=== PATIENT | male | born 1955 | race Caucasian/White ===

== ENCOUNTER → 2017-09-23 10:27 | Outpatient (CLI) | payer MEDICARE, SELFPAY ==
[2017-09-23 12:27] LABS: AST(SGOT) 26 U/L (15-37); Alanine Aminotransfer ALT/SGPT 32 U/L (16-61); Albumin, Serum 3.7 g/dL (3.2-5.0); Alkaline Phosphatase 39 U/L (45-117); Anion Gap 5 (5-15); BUN 15 mg/dL (7-18); BUN/Creat Ratio 13.3 RATIO (10-20); Bilirubin, Direct 0.08 mg/dL (0.00-0.30); Calcium,Total 8.3 mg/dL (8.5-10.1); Chloride 106 mmol/L (98-107); Cholesterol 135 mg/dL (200); Creatinine, Serum 1.13 mg/dL (0.70-1.30); EST Glomerular Filtration Rate 70 mL/min (>60); Est Glom Filt Rate - Afr Amer 85 mL/min (>60); Globulin 3.2 g/dL (2.2-4.2); Glucose 140 mg/dL (74-106); High Density Lipoprotein 36 mg/dL; Protein, Total 6.9 g/dL (6.4-8.2); Sodium Level 138 mmol/L (136-145); Triglycerides 209 mg/dL; Very Low Density Lipoprotein 42 mg/dL (5-40)
[2017-09-23 12:30] LABS: Microalbumin,Random Urine < 5.0 mg/L (NO RANGE EST.)
[2017-09-24 11:22] LABS: Hep C Antibodies <0.1 s/co ratio (0.0-0.9)
== END ==
PROVIDERS: Family Provider Family Medicine; PCP Family Medicine; Visit Provider Family Medicine
DX: E11.9 Type 2 diabetes mellitus without complications (principal); Z11.59 Encounter for screening for other viral diseases
CPT/HCPCS: 36415; 80048; 80061; 80076; 82043; 82570; 86803

== ENCOUNTER → 2018-03-25 07:03 | Outpatient (CLI) | payer MEDICARE, SELFPAY ==
[2018-03-25 09:01] LABS: Microalbumin,Random Urine < 5.0 mg/L (NO RANGE EST.)
[2018-03-25 09:07] LABS: AST(SGOT) 21 U/L (15-37); Alanine Aminotransfer ALT/SGPT 31 U/L (16-61); Albumin, Serum 3.6 g/dL (3.2-5.0); Alkaline Phosphatase 36 U/L (45-117); Anion Gap 8 (5-15); BUN 18 mg/dL (7-18); BUN/Creat Ratio 16.4 RATIO (10-20); Chloride 100 mmol/L (98-107); Cholesterol 129 mg/dL (200); EST Glomerular Filtration Rate 72 mL/min (>60); Est Glom Filt Rate - Afr Amer 87 mL/min (>60); Globulin 3.5 g/dL (2.2-4.2); Glucose 128 mg/dL (74-106); High Density Lipoprotein 38 mg/dL; Potassium 4.1 mmol/L (3.5-5.1); Protein, Total 7.1 g/dL (6.4-8.2); Sodium Level 136 mmol/L (136-145); Triglycerides 219 mg/dL; Very Low Density Lipoprotein 44 mg/dL (5-40)
== END ==
PROVIDERS: Family Provider Family Medicine; PCP Family Medicine; Visit Provider Family Medicine
DX: E11.9 Type 2 diabetes mellitus without complications (principal)
CPT/HCPCS: 36415; 80048; 80061; 80076; 82043; 82570

== ENCOUNTER → 2019-01-17 12:09 | Outpatient (CLI) | payer MEDICARE, SELFPAY ==
--- NOTE | 2019-01-17 12:20 | CT_ITS ---
STUDY: CT ABDOMEN AND PELVIS WITH CONTRAST REASON FOR EXAM: Male, 63 years old. Abdominal pain, nausea and vomiting. RADIATION DOSAGE (If Supplied By Facility): CTDIvol = ( 16.91 ) mGy, DLP = ( 1209.08 ) mGycm TECHNIQUE: Transaxial images were obtained from the dome of the diaphragm to the symphysis pubis with oral contrast. 100ML IV/Oral Isovue 300 was administered. Sagittal and coronal images were reconstructed. Individualized dose optimization techniques were used for this CT. COMPARISON: CT abdomen and pelvis September 05, 2015. Normal small bowel series September 16, 2015 and normal esophagram September 30, 2016 not available for comparison at the time of this dictation. FINDINGS: The visualized lung bases are unremarkable. The heart size is upper normal. There are atherosclerotic calcifications of the coronary arteries. There is hepatomegaly, the right lobe measuring 20.9 cm in height. It is difficult to accurately assess liver density following IV contrast menstruation, but there is strong suggestion of diffuse fatty infiltration. The patent portal vein diameter is 14.5 mm.. There are 2-4 very small calcified stones near the gallbladder fundus (series 2 image 54, series 6 on image 57). No mural thickening of the gallbladder nor pericholecystic fluid to suggest cholecystitis. The biliary tree is unremarkable Normal spleen. Normal pancreas. Normal bilateral adrenal glands. Normal right kidney. Normal left kidney. No hydronephrosis. Normal visualized stomach. Normal small intestine. Normal colon. The appendix is visualized and appears normal. There is mild atherosclerotic calcification of the abdominal aorta and proximal iliac arteries, without a demonstrated aneurysm. Normal inferior vena cava. Normal retroperitoneum. Normal urinary bladder. Normal visualized prostate gland. There is a fascial defect in the lateral margin of the lower left rectus abdominis muscle, allowing for a stable lentiform shaped 7.4 x 3.05 x 8.4 cm fat-containing hernia near the top of the left inguinal canal. There is a stable very small umbilical hernia containing fat. There are diffuse degenerative changes of the visualized spine. There is mild anterior wedging of the T11 and T12 vertebrae. Well-corticated focal invaginations of a few lower thoracic vertebral endplates are consistent with benign Schmorl's nodes. CT/Abdomen/Pelvis WITH Contrast IMPRESSION: 1. The bowel is unremarkable without signs of obstruction. The appendix is normal. 2. Hepatomegaly with probable steatosis. 3. A few very small gallstones are present. No sign of acute cholecystitis or bile duct obstruction. 4. Atherosclerotic vascular calcifications, as noted above. 5. Fascial defect at the lateral margin of the lower left rectus abdominis muscle with a stable lentiform shaped 8 cm fat-containing hernia near the top of the left inguinal canal. Electronically Signed: Saroj South MD at 15:26 EDT , Service support ,
[2019-01-17 14:19] LABS: Absolute Lymphocyte Count 1.39 X10^3/ul (0.83-4.51); Absolute Neutrophil Count 9.4 X10^3/uL (2.0-7.7); Basophil# 0.04 X10^3/uL; Basophil% 0.3 % (0-1); Eosinophil# 0.19 X10^3/uL; Eosinophils% 1.6 % (0-5); Hematocrit 41.4 % (40-54); Hemoglobin 14.7 g/dl (13.0-16.5); Lymphocyte # 1.39 X10^3/ul (4.0); Lymphocyte % 11.7 % (19-41); Mean Corp Hgb Conc 35.5 g/gl (32-36); Mean Corpuscular Hgb 31.1 pg (27.0-32.0); Mean Corpuscular Volume 87.5 fL (80-94); Mean Platelet Vol. 9.7 fl (6.2-12.0); Monocyte# 0.78 X10^3/uL; Monocyte% 6.6 % (0-10); Neutrophil # 9.43 X10^3/uL (2.7-7.7); Neutrophil % 79.6 % (47-70); Platelet Count 246 K/mm3 (150-450); RBC Distribution Width CV 12.4 % (11.6-14.6); RBC Distribution Width SD 39.2 fl (35.1-43.9); Red Blood Count 4.73 M/mm3 (4.6-6.2); White Blood Count 11.9 K/mm3 (4.4-11.0)
[2019-01-17 14:22] LABS: POSITIVE COUNT NO; POSITIVE DIFFERENTIAL NO; POSITIVE MORPHOLOGY NO
[2019-01-17 14:28] LABS: Amylase 44 U/L (25-115); Anion Gap 4 (5-15); BUN 12 mg/dL (7-18); BUN/Creat Ratio 11.7 RATIO (10-20); Chloride 97 mmol/L (98-107); Creatinine, Serum 1.03 mg/dL (0.70-1.30); EST Glomerular Filtration Rate 78 mL/min (>60); Est Glom Filt Rate - Afr Amer 94 mL/min (>60); Glucose 125 mg/dL (74-106); Lipase 169 U/L (73-393); Sodium Level 130 mmol/L (136-145)
== END ==
PROVIDERS: Family Provider Family Medicine; PCP Family Medicine; Referring Provider Family Medicine; Visit Provider Family Medicine
DX: R10.9 Unspecified abdominal pain (principal)
CPT/HCPCS: 36415; 74177; 80048; 82150; 83690; 85025; Q9967

== ENCOUNTER → 2019-02-27 14:01 | Outpatient (CLI) | payer MEDICARE, SELFPAY ==
[2019-02-27 15:36] LABS: ALB/GLOB Ratio 1.3 RATIO (0.9-2.4); AST(SGOT) 24 U/L (15-37); Alanine Aminotransfer ALT/SGPT 34 U/L (16-61); Albumin, Serum 4.1 g/dL (3.2-5.0); Alkaline Phosphatase 30 U/L (45-117); Anion Gap 6 (5-15); BUN 18 mg/dL (7-18); BUN/Creat Ratio 16.7 RATIO (10-20); Chloride 99 mmol/L (98-107); Creatinine, Serum 1.08 mg/dL (0.70-1.30); EST Glomerular Filtration Rate 73 mL/min (>60); Est Glom Filt Rate - Afr Amer 89 mL/min (>60); Globulin 3.1 g/dL (2.2-4.2); Glucose 102 mg/dL (74-106); Potassium 3.9 mmol/L (3.5-5.1); Protein, Total 7.2 g/dL (6.4-8.2); Sodium Level 132 mmol/L (136-145)
== END ==
PROVIDERS: Family Provider Family Medicine; PCP Family Medicine; Visit Provider Family Medicine
DX: B35.1 Tinea unguium (principal)
CPT/HCPCS: 36415; 80053

== ENCOUNTER → 2019-06-02 07:12 | Outpatient (CLI) | payer MEDICARE, SELFPAY ==
[2019-06-02 08:31] LABS: Anion Gap 4 (5-15); BUN 13 mg/dL (7-18); BUN/Creat Ratio 11.1 RATIO (10-20); Calcium,Total 8.9 mg/dL (8.5-10.1); Chloride 102 mmol/L (98-107); Cholesterol 151 mg/dL (200); Creatinine, Serum 1.17 mg/dL (0.70-1.30); EST Glomerular Filtration Rate 67 mL/min (>60); Est Glom Filt Rate - Afr Amer 81 mL/min (>60); Glucose 146 mg/dL (74-106); High Density Lipoprotein 40 mg/dL; Potassium 4.1 mmol/L (3.5-5.1); Sodium Level 135 mmol/L (136-145); Triglycerides 212 mg/dL; Very Low Density Lipoprotein 42 mg/dL (5-40)
== END ==
PROVIDERS: Family Provider Family Medicine; PCP Family Medicine; Referring Provider Family Medicine; Visit Provider Family Medicine
DX: I10 Essential (primary) hypertension (principal)
CPT/HCPCS: 36415; 80048; 80061

== ENCOUNTER → 2020-03-22 06:53 | Outpatient (CLI) | payer MEDICARE, SELFPAY ==
[2020-03-22 07:48] LABS: Anion Gap 7 (5-15); BUN 14 mg/dL (7-18); BUN/Creat Ratio 15.1 RATIO (10-20); Calcium,Total 8.9 mg/dL (8.5-10.1); Chloride 101 mmol/L (98-107); Cholesterol 141 mg/dL (200); Creatinine, Serum 0.92 mg/dL (0.70-1.30); EST Glomerular Filtration Rate 87 mL/min (>60); Est Glom Filt Rate - Afr Amer 106 mL/min (>60); Glucose 95 mg/dL (74-106); High Density Lipoprotein 51 mg/dL; Potassium 3.8 mmol/L (3.5-5.1); Sodium Level 136 mmol/L (136-145); Triglycerides 91 mg/dL; Very Low Density Lipoprotein 18 mg/dL (5-40)
== END ==
PROVIDERS: PCP Family Medicine; Referring Provider Family Medicine; Visit Provider Family Medicine
DX: E11.9 Type 2 diabetes mellitus without complications (principal)
CPT/HCPCS: 36415; 80048; 80061

== ENCOUNTER → 2020-08-05 09:31 | Outpatient (CLI) | payer MEDICARE, SELFPAY ==
--- NOTE | 2020-08-05 11:38 | STRESSREP ---
Stress Test Report Exercise stress test. 64-year-old male with a history of chest pain. Stress protocol: Resting EKG demonstrates normal sinus rhythm with a rate of 65 bpm normal intervals are noted resting blood pressure is 150/90 mmHg. The patient exercised according to regular Kevyn protocol for a total duration of 3 minutes. The maximum heart rate attained was 127 bpm which was 81% of max impacted heart rate the maximum workload was 4.6 metabolic equivalents. The test was terminated due to leg discomfort, and dyspnea and fatigue. The peak blood pressure is 180/84 mmHg. At rest there were no ST or T wave changes noted to suggest ischemia at peak exercise upsloping ST changes only were noted we did not meet the criteria for ischemia. No clinical angina was noted. Conclusion: Exercise stress test with no EKG criteria for ischemia at a low workload. The low workload may affect sensitivity for detection of ischemia.
== END ==
PROVIDERS: PCP Family Medicine; Referring Provider Internal Medicine Pulmonary Disease; Visit Provider Internal Medicine Pulmonary Disease
DX: R06.00 Dyspnea, unspecified (principal)
CPT/HCPCS: 93017

== ENCOUNTER → 2020-09-09 07:11 | Outpatient (CLI) | payer MEDICARE, SELFPAY ==
[2020-09-09 10:51] LABS: Anion Gap 7 (5-15); BUN 17 mg/dL (7-18); Calcium,Total 8.9 mg/dL (8.5-10.1); Chloride 98 mmol/L (98-107); Cholesterol 125 mg/dL (200); Creatinine, Serum 1.21 mg/dL (0.70-1.30); EST Glomerular Filtration Rate 64 mL/min (>60); Est Glom Filt Rate - Afr Amer 78 mL/min (>60); Glucose 143 mg/dL (74-106); High Density Lipoprotein 44 mg/dL; PSA,Total - Annual Screen 0.11 ng/mL (0.00-4.00); Potassium 3.9 mmol/L (3.5-5.1); Sodium Level 133 mmol/L (136-145); Triglycerides 134 mg/dL; Very Low Density Lipoprotein 27 mg/dL (5-40)
== END ==
PROVIDERS: PCP Family Medicine; Referring Provider Family Medicine; Visit Provider Family Medicine
DX: E11.9 Type 2 diabetes mellitus without complications (principal); Z12.5 Encounter for screening for malignant neoplasm of prostate
CPT/HCPCS: 36415; 80048; 80061; 84153; G0103

== ENCOUNTER 2020-09-24 16:06 | Emergency (ER) | payer MEDICARE, SELFPAY ==
[2020-09-24 16:07] VITALS: BP 173/93; BP 176/93; PULSE 54; RESP 18; TEMP 36.7; O2SAT 98; BMI 42.8
--- NOTE | 2020-09-24 16:41 | ED.DCSUM_ITS ---
History of Present Illness Chief Complaint: Nausea/Vomiting Informant: Patient Narrative: 64-year-old male presents with nausea vomiting and abdominal pain. Patient states he woke around 7:00 this morning felt okay. He drank water and coke and began having abdominal pain and then vomiting around 0900 hrs. He states he is feeling a little bit better now but he still belching feeling nauseous and having abdominal pain. He reports having had pancreatitis due to a blood pressure medication in the past. He states he has been told he has had gallstones but has not had cholecystectomy. He notes no radiation of the pain to the back, shoulder or flank. His only surgery he states is carpal tunnel. He did start a new antidepressant medication 2 weeks ago but cannot recall the name of it. No fevers. Normal bowel movement this morning. Past Medical History - Allergies and Home Meds Allergies/Adverse Reactions: Allergies lithium Allergy (Verified 09/30/14 21:14) Other levofloxacin [From Levaquin] Adverse Reaction (Verified 09/30/14 21:25) Pain in joints Primary Care Physician: José Stein MD [Primary Care Provider] - Past Medical History: - - Pancreatitis hypertension depression Surgical History: - - Carpal tunnel Smoking Status: Former smoker Alcohol: None Drugs: None Review of Systems General: Denies: Chills, Fever, Sweats Eyes: Denies: Visual changes - bilaterally, Diplopia ENT: Denies: Rhinorrhea, Sore throat Cardiovascular: Denies: Chest pain, Palpitations Respiratory: Denies: Dyspnea, Cough, Dyspnea on exertion Gastrointestinal: Reports: Abdominal pain, Nausea, Vomiting. Denies: Diarrhea, Melena, Hematochezia Genitourinary: Denies: Dysuria, Hematuria, Frequency Musculoskeletal: Denies: Back pain, Extremity Pain Skin: Denies: Rash, Wounds Neurological: Denies: Headache, Weakness, Numbness Physical Exam Vital Signs/Narrative: Vital Signs Temp Pulse Resp BP Pulse Ox 09/24/20 16:07 98.1 F 54 L 18 173/93 H 98 Inital Vital Signs reviewed: Yes General: Well nourished, Well developed, Obese, No Acute Distress Head: Normocephalic, Atraumatic Eyes: Perrl, EOMI ENT: Moist mucous membranes, No rhinorrhea Neck: Supple, Nontender Cardiovascular: Regular rate, Regular rhythm, No murmurs Respiratory: No distress, CTA bilaterally, Chest nontender Abdomen: Soft, Nondistended, Tender, Hypoactive bowel sounds. Negative for: Guarding Back: Nontender, Normal Inspection Extremities: Nontender, No edema Skin: Normal color, No rash Neurological: Alert, Oriented x3, Cranial nerves II-XII grossly intact, Normal Strength, Normal Sensation Psychological: Normal affect, Normal Mood Diagnostic/Tx/Re-eval Laboratory Last Values WBC 10.6 K/mm3 (4.4-11.0) 09/24/20 17:00 RBC 4.60 M/mm3 (4.6-6.2) 09/24/20 17:00 Hgb 14.5 g/dL (13.0-16.5) 09/24/20 17:00 Hct 40.7 % (40-54) 09/24/20 17:00 MCV 88.5 fL (80-94) 09/24/20 17:00 MCH 31.5 pg (27.0-32.0) 09/24/20 17:00 MCHC 35.6 g/dL (32-36) 09/24/20 17:00 RDW Std Deviation 38.9 fl (35.1-43.9) 09/24/20 17:00 RDW Coeff of Osmel 12.2 % (11.6-14.6) 09/24/20 17:00 Plt Count 256 K/mm3 (150-450) 09/24/20 17:00 MPV 9.5 fl (6.2-12.0) 09/24/20 17:00 Immature Gran % (Auto) 0.300 % (0.0-0.9) 09/24/20 17:00 Neut % (Auto) 80.3 % (47-70) H 09/24/20 17:00 Lymph % (Auto) 10.7 % (19-41) L 09/24/20 17:00 Waldo % (Auto) 5.6 % (0-10) 09/24/20 17:00 Eos % (Auto) 2.5 % (0-5) 09/24/20 17:00 Baso % (Auto) 0.6 % (0-1) 09/24/20 17:00 Absolute Neuts (auto) 8.5 X10^3/uL (2.0-7.7) H 09/24/20 17:00 Absolute Lymphs (auto) 1.13 X10^3/uL (0.83-4.51) 09/24/20 17:00 Nucleated RBC % 0 % (0-5) 09/24/20 17:00 Sodium 133 mmol/L (136-145) L 09/24/20 17:00 Potassium 4.1 mmol/L (3.5-5.1) 09/24/20 17:00 Chloride 97 mmol/L (98-107) L 09/24/20 17:00 Carbon Dioxide 25.0 mmol/L (21.0-32.0) 09/24/20 17:00 Anion Gap 11 (5-15) 09/24/20 17:00 BUN 14 mg/dL (7-18) 09/24/20 17:00 Creatinine 1.22 mg/dL (0.70-1.30) 09/24/20 17:00 Estim Creat Clear Calc 59.18 ml/min 09/24/20 17:00 Est GFR (MDRD) Af Amer 77 mL/min (>60) 09/24/20 17:00 Est GFR (MDRD) Non-Af 63 mL/min (>60) 09/24/20 17:00 BUN/Creatinine Ratio 11.5 RATIO (10-20) 09/24/20 17:00 Glucose 108 mg/dL (74-106) H 09/24/20 17:00 Calcium 9.5 mg/dL (8.5-10.1) 09/24/20 17:00 Total Bilirubin 0.60 mg/dL (0.20-1.00) 09/24/20 17:00 AST 23 U/L (15-37) 09/24/20 17:00 ALT 34 U/L (16-61) 09/24/20 17:00 Alkaline Phosphatase 33 U/L (45-117) L 09/24/20 17:00 Total Protein 7.4 g/dL (6.4-8.2) 09/24/20 17:00 Albumin 4.0 g/dL (3.2-5.0) 09/24/20 17:00 Globulin 3.4 g/dL (2.2-4.2) 09/24/20 17:00 Albumin/Globulin Ratio 1.2 RATIO (0.9-2.4) 09/24/20 17:00 Amylase 34 U/L (25-115) 09/24/20 17:00 Lipase 122 U/L (73-393) 09/24/20 17:00 Urine Color Yellow (Yellow) 09/24/20 16:40 Urine Clarity Clear (Clear) 09/24/20 16:40 Urine pH 7.0 (5.0 - 8.0) 09/24/20 16:40 Ur Specific [place] 1.015 (1.002-1.030) 09/24/20 16:40 Urine Protein Negative mg/dl (Negative) 09/24/20 16:40 Urine Glucose (UA) Normal mg/dl (Normal) 09/24/20 16:40 Urine Ketones Negative mg/dl (Negative) 09/24/20 16:40 Urine Occult Blood Negative /ul (Negative) 09/24/20 16:40 Urine Nitrite Negative (Negative) 09/24/20 16:40 Urine Bilirubin Negative mg/dL (Negative) 09/24/20 16:40 Urine Urobilinogen Normal mg/dl (Normal) 09/24/20 16:40 Ur Leukocyte Esterase Negative /ul (Negative) 09/24/20 16:40 Urine RBC 0 SEEN /hpf (0-5) 09/24/20 16:40 Urine WBC 0 SEEN /hpf (0-5) 09/24/20 16:40 Ur Squamous Epith Cells 0 SEEN /hpf (0-5) 09/24/20 16:40 Urine Bacteria RARE /hpf (None Seen) 09/24/20 16:40 Urine Mucus 0 SEEN /hpf (<or=2+) 09/24/20 16:40 STUDY: ULTRASOUND GALLBLADDER REASON FOR VISIT: Male, 64 years old. Abdominal pain TECHNIQUE: Ultrasound evaluation of the gallbladder was performed with real-time and static avalos-scale imaging. TECHNICAL QUALITY: Adequate. COMPARISON: CT abdomen and pelvis 01/17/2019 report. FINDINGS: Liver measures 19.6 cm and appears echogenic/fatty. Gallbladder: Normal distended gallbladder. The gallbladder wall measures 1 mm. There is a negative sonographic Andrews''s sign. There is no pericholecystic fluid. There are multiple echogenic structures within the gallbladder, consistent with multiple gallstones and sludge. Common Bile Duct (C.B.D.): The common bile duct measures 2 mm. Pancreas appears echogenic and possibly enlarged. Right kidney measures 13.9 cm. No hydronephrosis. IMPRESSION: Limited exam due to bowel gas. Cholelithiasis. Possible pancreatitis. Hepatic steatosis. Electronically Signed: Neil Abad MD at 18:24 EST , Service support , US/Gallbladder CC: Dr. Dani Frausto DO; Dr. José Stein MD Hunting And Fishing Guide: Signed - Medical Decision Making The patient received morphine and Zofran. He also received IV fluids. Repeat examination finds him to be feeling significantly better. His white count is normal but there is a slight shift. Lipase and liver enzymes normal. Gallbladder ultrasound shows cholelithiasis and sludge. No pericholecystic fluid negative sonographic Andrews's normal common bile duct and normal gallbladder wall. Case was discussed with on-call surgeon Dr. Johnson. Our plan is that we would feed him. He ate for large cookies and drank fluids. He states he has had no pain no nausea or vomiting. He would like to go home I think is reasonable at this time. I will refer him to surgery and write for him to have pain and nausea medication but if he is uncomfortable at home he can certainly return. ED Disposition - Plan for ED Patient: Disposition: Home or Assisted Living Diagnosis: Vomiting, Abdominal pain, Cholelithiasis Instructions: ED Gallstones with Biliary Colic Prescriptions: Hydrocodone Bitart/Apap 5-325 [Thor 5MG-325MG] 1 tab PO Q6H PRN PRN 3 Days #10 tab PRN Reason: Pain Prescription Printed Ondansetron [Zofran Odt] 4 mg PO Q8H PRN PRN #10 tab PRN Reason: Nausea Prescription Printed Referrals: Ayaan Johnson MD [STAFF PHYSICIAN] - (Call in the morning to obtain early surgical consultation for your gallbladder disease)
[2020-09-24 16:57] LABS: Mucous, Urine 0 SEEN /hpf (<or=2+); Red Blood Cells-Urine 0 SEEN /hpf (0-5); Squamous Epithelial Cells - UA 0 SEEN /hpf (0-5); White Blood Cells 0 SEEN /hpf (0-5)
[2020-09-24 16:59] LABS: Color, Urine Yellow (Yellow); Glucose, Dipstick Normal (Normal); Ketone-Dipstick Negative (Negative); Leukocyte Esterase-Dipstick Negative /ul (Negative); Nitrite-Dipstick Negative (Negative); Occult Blood-Urine Negative /ul (Negative); Protein-Dipstick Negative (Negative); Specific Gravity, Urine 1.015 (1.002-1.030); Urine Bilirubin Dipstick Negative (Negative); Urine Clarity Clear (Clear); Urine Urobilinogen Normal (Normal)
[2020-09-24] MEDS: 0.9% Normal Saline 1,000 ML 1000 ML IV (16:59)
[2020-09-24] MEDS: Morphine 4 MG/ML Syringe IV (17:04)
[2020-09-24] MEDS: Ondansetron 4 MG/2 ML Vial IV (17:05)
[2020-09-24 17:07] LABS: Bacteria RARE /hpf (None Seen)
[2020-09-24 17:16] LABS: Absolute Lymphocyte Count 1.13 X10^3/uL (0.83-4.51); Absolute Neutrophil Count 8.5 X10^3/uL (2.0-7.7); Basophil# 0.06 X10^3/uL; Basophil% 0.6 % (0-1); Eosinophil# 0.26 X10^3/uL; Eosinophils% 2.5 % (0-5); Hematocrit 40.7 % (40-54); Hemoglobin 14.5 g/dL (13.0-16.5); Lymphocyte # 1.13 X10^3/ul (4.0); Lymphocyte % 10.7 % (19-41); Mean Corp Hgb Conc 35.6 g/dL (32-36); Mean Corpuscular Hgb 31.5 pg (27.0-32.0); Mean Corpuscular Volume 88.5 fL (80-94); Mean Platelet Vol. 9.5 fl (6.2-12.0); Monocyte# 0.59 X10^3/uL; Monocyte% 5.6 % (0-10); NRBC Flagged by Analyzer 0 % (0-5); Neutrophil # 8.48 X10^3/uL (2.7-7.7); Neutrophil % 80.3 % (47-70); Platelet Count 256 K/mm3 (150-450); RBC Distribution Width CV 12.2 % (11.6-14.6); RBC Distribution Width SD 38.9 fl (35.1-43.9); White Blood Count 10.6 K/mm3 (4.4-11.0)
[2020-09-24 17:40] LABS: ALB/GLOB Ratio 1.2 RATIO (0.9-2.4); AST(SGOT) 23 U/L (15-37); Alanine Aminotransfer ALT/SGPT 34 U/L (16-61); Alkaline Phosphatase 33 U/L (45-117); Amylase 34 U/L (25-115); Anion Gap 11 (5-15); BUN 14 mg/dL (7-18); BUN/Creat Ratio 11.5 RATIO (10-20); Calcium,Total 9.5 mg/dL (8.5-10.1); Chloride 97 mmol/L (98-107); Creatinine, Serum 1.22 mg/dL (0.70-1.30); EST Glomerular Filtration Rate 63 mL/min (>60); Est Glom Filt Rate - Afr Amer 77 mL/min (>60); Estimated Creatinine Clearance 59.18 ml/min; Globulin 3.4 g/dL (2.2-4.2); Glucose 108 mg/dL (74-106); Lipase 122 U/L (73-393); Potassium 4.1 mmol/L (3.5-5.1); Protein, Total 7.4 g/dL (6.4-8.2); Sodium Level 133 mmol/L (136-145)
[2020-09-24] MEDS: 0.9% Normal Saline 1,000 ML 125 ML IV (18:01)
[2020-09-24 18:19] VITALS: BP 160/88; PULSE 54; RESP 16; O2SAT 96
[2020-09-24 19:46] VITALS: BP 158/86; PULSE 78; RESP 18; TEMP 36.6; O2SAT 97
== END 2020-09-24 19:47 | disposition home or self-care (01) ==
PROVIDERS: Emergency Provider Emergency Medicine; PCP Family Medicine
DX: K80.20 Calculus of gallbladder without cholecystitis without obstruction (principal); R11.2 Nausea with vomiting, unspecified; R10.9 Unspecified abdominal pain; Z87.891 Personal history of nicotine dependence
CPT/HCPCS: 76705; 80053; 81001; 82150; 83690; 85025; 96361; 96374; 96375; 99283; J7030; J2405

== ENCOUNTER → 2020-11-20 06:49 | Outpatient (CLI) | payer MEDICARE, SELFPAY ==
--- NOTE | 2020-11-20 10:47 | STRESSREP ---
Stress Test Report Date: 11-20-2020 Procedure: Pharmacologic stress nuclear imaging study Indications: Shortness of breath/dyspnea on exertion Consent: Per the patient Procedure: The patient underwent pharmacologic (Regadenoson 0.4mg ) evaluation with a peak heart rate of 67 beats per minute (42%predicted maximal heart rate) and a peak blood pressure of 152/84 mmHg. The baseline ECG demonstrated sinus bradycardia. The peak pharmacologic ECG demonstrated no obvious ECG changes. There were no cardiac dysrhythmias pretest, during pharmacologic infusion, or recovery. There was no complaint of chest discomfort during pharmacologic infusion or recovery. The examination was discontinued secondary to completion of protocol. Impression: 1. Pharmacologic (Regadenoson) evaluation 2. Peak pharmacologic ECG with no obvious ECG changes. 3. There were no cardiac dysrhythmias pretest, during pharmacologic infusion, or recovery. 4. Nuclear images pending Myocardial perfusion imaging study: Technique: The patient was injected with 14.7 millicuries of technetium 99m Cardiolite and subsequently rest SPECT Cardiolite nuclear imaging was obtained in the horizontal long, vertical long, and short axis views. The patient underwent pharmacologic (Regadenoson) evaluation with a peak heart rate of 67 beats per minute (42% percent predicted maximal heart rate) and a peak blood pressure of 152/84 mmHg. The patient was injected with 44.3 millicuries of technetium 99m Cardiolite and subsequently stress SPECT Cardiolite nuclear imaging was obtained in the horizontal long, vertical long, and short axis views. A gated Cardiolite study at peak stress was obtained. Interpretation: Rest and stress SPECT Cardiolite nuclear imaging status post realignment, normalization, and attenuation correction demonstrate relative uniform tracer uptake and myocardial perfusion appearing within normal limits. There is end systolic thickening and brightening. The gated Cardiolite study demonstrates myocardial thickening and inward wall motion. The reported LVEF is 73%. Impression: 1. Rest and stress SPECT Cardiolite nuclear imaging demonstrate relative uniform tracer uptake and myocardial perfusion appearing within normal limits. 2. The gated Cardiolite study reports an LVEF of 73%. This note was generated with Clik[employer] software. It may contain incorrect words, spelling, and punctuation that were not noted in checking the note before signing.
== END ==
PROVIDERS: PCP Family Medicine; Referring Provider Internal Medicine Pulmonary Disease; Visit Provider Internal Medicine Pulmonary Disease
DX: J44.9 Chronic obstructive pulmonary disease, unspecified (principal); R06.00 Dyspnea, unspecified
CPT/HCPCS: 78452; 93017; A9500; A4216; J2785

== ENCOUNTER → 2020-12-31 07:03 | Outpatient (CLI) | payer MEDICARE, SELFPAY ==
[2020-12-31 10:43] LABS: Microalbumin,Random Urine 5.8 mg/L (NO RANGE EST.); Microalbumin:Creatinine Ratio 10.4 mg/g CRE (<30 mg/g CRE)
[2020-12-31 10:53] LABS: Anion Gap 9 (5-15); BUN 13 mg/dL (7-18); BUN/Creat Ratio 12.1 RATIO (10-20); Calcium,Total 9.2 mg/dL (8.5-10.1); Chloride 91 mmol/L (98-107); Cholesterol 131 mg/dL (200); Creatinine, Serum 1.07 mg/dL (0.70-1.30); EST Glomerular Filtration Rate 74 mL/min (>60); Est Glom Filt Rate - Afr Amer 89 mL/min (>60); Glucose 114 mg/dL (74-106); High Density Lipoprotein 48 mg/dL; Potassium 4.4 mmol/L (3.5-5.1); Sodium Level 127 mmol/L (136-145); Triglycerides 88 mg/dL; Very Low Density Lipoprotein 18 mg/dL (5-40)
== END ==
PROVIDERS: PCP Family Medicine; Referring Provider Family Medicine; Visit Provider Family Medicine
DX: E11.9 Type 2 diabetes mellitus without complications (principal)
CPT/HCPCS: 36415; 80048; 80061; 82043; 82570

== ENCOUNTER 2021-01-11 13:44 | Emergency (ER) | payer MEDICARE, SELFPAY ==
[2021-01-11] VITALS (7 sets, daily range): BP systolic 165–182; BP diastolic 95–103; PULSE 66–77; RESP 14–18; TEMP 36.6–36.9; O2SAT 98; BMI 35.9
--- NOTE | 2021-01-11 13:49 | EKG12_ITS ---
Test Reason : ALT LOC Blood Pressure : / mmHG Vent. Rate : 064 BPM Atrial Rate : 064 BPM P-R Int : 126 ms QRS Dur : 106 ms QT Int : 420 ms P-R-T Axes : 026 009 053 degrees QTc Int : 433 ms Normal sinus rhythm Normal ECG Confirmed by MARLENE JORGE MD ([id number]), assistant production editor KASSANDRA BELLE ([id number]) on 01/14/2021 8:58:19 AM Referred By: CL Confirmed By:MARLENE JORGE MD
--- NOTE | 2021-01-11 14:50 | EDS_ITS ---
HPI HPI - Psych History of Present Illness Chief Complaint: Mental Health Narrative Narrative: 65-year-old male presents with concern for auditory hallucinations and odd behavior. Presents with his niece who states that these symptoms have increased over the past year. 2 years ago patient was placed on Risperdal, Cogentin, Zoloft with concern for bipolar disorder. Follows with a psychiatrist at [facility]. Patient took a gun to his mother's house last night because he felt that people are after her. Also gave the gun to his parents because he is concerned what he might do with it. Patient denies any suicidal or homicidal ideation at this time. [facility] Medical History (Updated 01/11/21 @ 17:[address] Bernard Schwartz DO) Depression Diabetes GERD (gastroesophageal reflux disease) Hyperlipemia Hypertension Home Medications amlodipine 10 mg PO DAILY 09/30/14 [History Last Taken Unknown] aspirin 81 mg PO DAILY@0800 09/30/14 [History Last Taken Unknown] fenofibrate nanocrystallized 145 mg PO DAILY 09/30/14 [History Last Taken Unknown] metoprolol tartrate 100 mg PO BID 09/30/14 [History Last Taken Unknown] risperidone [Risperdal] 4 mg PO DAILY 09/30/14 [History Last Taken Unknown] sertraline 200 mg PO DAILY 09/30/14 [History Last Taken Unknown] spironolactone 25 mg PO BID 09/30/14 [History Last Taken Unknown] benztropine 0.5 mg BID 01/11/21 [History Last Taken Unknown] lisinopril 40 mg PO DAILY 01/11/21 [History Last Taken Unknown] lovastatin 20 mg PO DAILY 01/11/21 [History Last Taken Unknown] metformin 1,000 mg PO DAILY 01/11/21 [History Last Taken Unknown] omeprazole 40 mg PO DAILY 01/11/21 [History Last Taken Unknown] Allergy/AdvReac Type Severity Reaction Status Date / Time lithium Allergy Other Verified 01/11/21 13:45 levofloxacin [From Levaquin] AdvReac Pain in Verified 01/11/21 13:45 joints Social History Smoking Status: Former smoker ROS ROS ED Constitutional Constitutional ED: Denies chills, fever(s) or sweats Eyes Eyes: Denies blurry vision, change in vision or diplopia ENT ENT ED: Denies rhinorrhea or sore throat Cardiovascular Cardiovascular: Denies chest pain, orthopnea, palpitations or racing heartbeat Respiratory/Chest Respiratory/Chest: Denies cough, dyspnea, dyspnea on exertion, orthopnea or sputum Gastrointestinal Gastrointestinal: Denies abdominal pain, constipation, diarrhea, melena, nausea or vomiting Genitourinary Genitourinary ED: Denies dysuria, hematuria or urinary frequency Musculoskeletal Musculoskeletal: Denies arthralgias, myalgias or neck pain Integumentary Denies rash Neurologic Neurologic: Denies headache(s), paresthesias or weakness Psychiatric Psychiatric: Reports other Details: Auditory hallucinations. Paranoia. ; Denies anxiety or depression Hematologic/Lymphatic Hematologic/Lymphatic: Denies easy bleeding or easy bruising Allergic/Immunologic Allergic/Immunologic ED: Denies mouth swelling or tongue swelling EXAM Physical Exam Const Vital Signs: 01/11/21 13:45 01/11/21 13:46 01/11/21 15:45 Temperature 98.5 F Temperature Source Temporal Pulse Rate 66 Respiratory Rate 16 14 18 Blood Pressure 182/98 H Blood Pressure Mean 126 Pulse Ox 98 Oxygen Delivery Method Room Air Positive well nourished and well developed General Appearance ED: well developed HEENT Reports TM's clear and moist mucous membranes normocephalic and atraumatic Tympanic Membrane ED: Yes TM's clear Eyes PERRL and EOMs intact bilaterally Neck no lymphadenopathy, supple and no JVD Chest Wall inspection of chest normal Resp normal respiratory effort and clear to auscultation bilaterally Cardio regular rate, S1 normal heart sound, S2 normal heart sound and no murmurs Peripheral Pulses: pulses 2+ throughout GI soft to palpation, non-tender and non-distended Back/Spine no CVA tenderness and no thoracic nor lumbar tenderness Extremity normal to inspection General Extremety ED: Negative for edema or tenderness General Extremity: Negative for edema Neuro oriented x3, CN's II-XII intact bilaterally and no sensory deficits noted Sensorium / Orientation: alert Motor Exam: strength 5/5 throughout Psych mental status grossly normal Attitude: calm Speech: normal speech Skin no rashes or lesions noted MDM MDM MDM Narrative Medical decision making narrative: Patient appears well and nontoxic. Vital signs within normal limits. Patient medically cleared at this time for evaluation by social work and psychiatry. Patient handed off to oncoming physician Dr. Burris at 1700. Lab Data Attestation: I reviewed the patient's lab results. Labs: Laboratory Results - last 24 hr 01/11/21 01/11/21 01/11/21 14:40 14:40 15:00 WBC 10.1 RBC 4.80 Hgb 14.7 Hct 41.5 MCV 86.5 MCH 30.6 MCHC 35.4 RDW Std Deviation 38.1 RDW Coeff of Osmel 12.0 Plt Count 328 MPV 8.0 Immature Gran % (Auto) 0.400 Neut % (Auto) 77.3 H Lymph % (Auto) 13.7 L [place] % (Auto) 7.5 Eos % (Auto) 0.5 Baso % (Auto) 0.6 Absolute Neuts (auto) 7.8 H Absolute Lymphs (auto) 1.38 Nucleated RBC % 0 Sodium Potassium Chloride Carbon Dioxide Anion Gap BUN Creatinine Estim Creat Clear Calc Est GFR (MDRD) Af Amer Est GFR (MDRD) Non-Af BUN/Creatinine Ratio Glucose Calcium Urine Color SEE COMMENT BELOW Urine Clarity Clear Urine pH 7.0 Ur Specific [place] 1.010 Urine Protein Negative Urine Glucose (UA) Normal Urine Ketones Negative Urine Occult Blood Negative Urine Nitrite Negative Urine Bilirubin Negative Urine Urobilinogen Normal Ur Leukocyte Esterase Negative Urine RBC 0 SEEN Urine WBC 0 SEEN Ur Squamous Epith Cells 0 SEEN Urine Bacteria 0 SEEN Urine Mucus 0 SEEN Urine Opiates Screen NEGATIVE Urine Methadone Screen NEGATIVE Ur Barbiturates Screen NEGATIVE Ur Phencyclidine Scrn NEGATIVE Ur Amphetamines Screen NEGATIVE U Methamphetamin-MDMA NEGATIVE U Benzodiazepines Scrn NEGATIVE Urine Cocaine Screen NEGATIVE U Cannabinoids Screen NEGATIVE Ur Drug Screen Comment Ethyl Alcohol 01/11/21 01/11/21 15:00 15:00 WBC RBC Hgb Hct MCV MCH MCHC RDW Std Deviation RDW Coeff of Osmel Plt Count MPV Immature Gran % (Auto) Neut % (Auto) Lymph % (Auto) [place] % (Auto) Eos % (Auto) Baso % (Auto) Absolute Neuts (auto) Absolute Lymphs (auto) Nucleated RBC % Sodium 126 L Potassium 3.7 Chloride 91 L Carbon Dioxide 26.0 Anion Gap 9 BUN 14 Creatinine 0.95 Estim Creat Clear Calc 80.04 Est GFR (MDRD) Af Amer 103 Est GFR (MDRD) Non-Af 85 BUN/Creatinine Ratio 14.8 Glucose 115 H Calcium 9.3 Urine Color Urine Clarity Urine pH Ur Specific [place] Urine Protein Urine Glucose (UA) Urine Ketones Urine Occult Blood Urine Nitrite Urine Bilirubin Urine Urobilinogen Ur Leukocyte Esterase Urine RBC Urine WBC Ur Squamous Epith Cells Urine Bacteria Urine Mucus Urine Opiates Screen Urine Methadone Screen Ur Barbiturates Screen Ur Phencyclidine Scrn Ur Amphetamines Screen U Methamphetamin-MDMA U Benzodiazepines Scrn Urine Cocaine Screen U Cannabinoids Screen Ur Drug Screen Comment Ethyl Alcohol < 3.0 Rhythm Strip Rhythm Strip: Sinus Rhythm Rate: 64 Ectopy: None EKG Initial EKG: Attestation: I personally reviewed and interpreted this EKG as follows: Interpretation: Sinus Rhythm Comments: Normal sinus rhythm at 64 bpm. WA interval 126 ms. QTC of 433 ms. No evidence of ST elevation or depression at this time. Discharge Plan Triage Chief Complaint: Mental Health ED Provider: Bernard Schwartz Dx/Rx/DC Orders Clinical Impression: Auditory hallucination, Bipolar 1 disorder Prescriptions: No Action metoprolol tartrate 100 MG tablet 100 mg PO BID RF: 0 risperidone [Risperdal] 4 MG tablet 4 mg PO DAILY RF: 0 sertraline 100 MG tablet 200 mg PO DAILY RF: 0 aspirin 81 MG tablet 81 mg PO DAILY@0800 RF: 0 amlodipine 10 MG tablet 10 mg PO DAILY RF: 0 spironolactone 50 MG tablet 25 mg PO BID RF: 0 fenofibrate nanocrystallized 145 MG tablet 145 mg PO DAILY RF: 0 benztropine 0.5 mg tablet 0.5 mg BID RF: 0 omeprazole 40 mg Capsule,Delayed Release(Dr/Ec) 40 mg PO DAILY RF: 0 metformin 1,000 mg Tablet 1,000 mg PO DAILY RF: 0 lisinopril 40 mg Tablet 40 mg PO DAILY RF: 0 lovastatin 20 mg Tablet Extended Release 24 Hr 20 mg PO DAILY RF: 0 Primary Care Provider: José Stein Referrals: José Stein MD [Primary Care Provider] -
[2021-01-11 15:12] LABS: Bacteria 0 SEEN /hpf (None Seen); Mucous, Urine 0 SEEN /hpf (<or=2+); Red Blood Cells-Urine 0 SEEN /hpf (0-5); Squamous Epithelial Cells - UA 0 SEEN /hpf (0-5); White Blood Cells 0 SEEN /hpf (0-5)
[2021-01-11 15:14] LABS: Absolute Lymphocyte Count 1.38 X10^3/uL (0.83-4.51); Absolute Neutrophil Count 7.8 X10^3/uL (2.0-7.7); Basophil# 0.06 X10^3/uL; Basophil% 0.6 % (0-1); Eosinophil# 0.05 X10^3/uL; Eosinophils% 0.5 % (0-5); Hematocrit 41.5 % (40-54); Hemoglobin 14.7 g/dL (13.0-16.5); Lymphocyte # 1.38 X10^3/ul (0.83-4.51); Lymphocyte % 13.7 % (19-41); Mean Corp Hgb Conc 35.4 g/dL (32-36); Mean Corpuscular Hgb 30.6 pg (27.0-32.0); Mean Corpuscular Volume 86.5 fL (80-94); Monocyte# 0.76 X10^3/uL; Monocyte% 7.5 % (0-10); NRBC Flagged by Analyzer 0 % (0-5); Neutrophil % 77.3 % (47-70); Platelet Count 328 K/mm3 (150-450); RBC Distribution Width SD 38.1 fl (35.1-43.9); White Blood Count 10.1 K/mm3 (4.4-11.0)
[2021-01-11 15:24] LABS: Glucose, Dipstick Normal (Normal); Ketone-Dipstick Negative (Negative); Leukocyte Esterase-Dipstick Negative /ul (Negative); Nitrite-Dipstick Negative (Negative); Occult Blood-Urine Negative /ul (Negative); Protein-Dipstick Negative (Negative); Urine Bilirubin Dipstick Negative (Negative); Urine Clarity Clear (Clear); Urine Urobilinogen Normal (Normal)
[2021-01-11 15:27] LABS: Color, Urine SEE COMMENT BELOW (Yellow)
[2021-01-11 15:28] LABS: Anion Gap 9 (5-15); BUN 14 mg/dL (7-18); BUN/Creat Ratio 14.8 RATIO (10-20); Calcium,Total 9.3 mg/dL (8.5-10.1); Chloride 91 mmol/L (98-107); Creatinine, Serum 0.95 mg/dL (0.70-1.30); EST Glomerular Filtration Rate 85 mL/min (>60); Est Glom Filt Rate - Afr Amer 103 mL/min (>60); Estimated Creatinine Clearance 80.04 ml/min; Glucose 115 mg/dL (74-106); Potassium 3.7 mmol/L (3.5-5.1); Sodium Level 126 mmol/L (136-145)
[2021-01-11 15:42] LABS: Amphetamine Urine VISTA NEGATIVE (<1000 ng/mL); Barbiturate Urine VISTA NEGATIVE (< 200 ng/mL); Benzodiazepine Urine VISTA NEGATIVE (< 200 ng/mL); Cocaine Urine VISTA NEGATIVE (< 300 ng/mL); Ecstacy Urine VISTA NEGATIVE (< 500 ng/mL); Methadone Urine VISTA NEGATIVE (< 300 ng/mL); PCP Urine VISTA NEGATIVE (< 25 ng/mL); THC Urine VISTA NEGATIVE (< 50 ng/mL); Vista UDS pH Range 6
[2021-01-11 15:55] LABS: Alcohol, Blood (Medical)-Serum < 3.0 mg/dL
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
--- NOTE | 2021-01-11 18:32 | CM.ED ---
CARLOS Note SW called [facility]. They reported no beds but then when asked about beds for [facility] they took referral information. They said that they need EKG and CMP and pink slip faxed to them with referral information. signed pink slip. CARLOS called [facility]. They accept [facility] Insurance. Ama VALENTINE
--- NOTE | 2021-01-11 19:29 | CM.ED ---
Addendum entered by Ama Marlow 01/11/21 19:55: CARLOS called [facility]. They do not take insurance as generally [facility] wants patient to go to [facility] provider. Ama Marlow MSBrandt MCCORMICK Addendum entered by Ama Marlow 01/11/21 19:49: CARLOS updated manager people the following: SLOT FLOOR SUPERVISOR needs to be faxed to [facility] If [facility] Declines then follow up with [facility]. [facility] will need their covid screen paperwork completed. [facility] has copy of referral packet. Call Tania [phone] and mother Leelee [phone] for update when patient is discharged. Ama A Ele MCCORMICK Original Note: CARLOS Note Patient's mother came into visit patient. She reported to social director that she was unsure if patient was taking medication correctly. CARLOS encouraged her to have patient be linked to [facility] at discharge from outpatient provider. CARLOS updated Tiffany that the referral packet for this patient has been submitted to [facility] however, as this writer editor is leaving at 8:15. CARLOS faxed referral packet to Tiffany at [facility]. Plan: Inpatient psych Ama Ele MCCORMICK
[2021-01-11 19:30] LABS: AST(SGOT) 34 U/L (15-37); Alanine Aminotransfer ALT/SGPT 36 U/L (16-61); Albumin, Serum 4.2 g/dL (3.2-5.0); Alkaline Phosphatase 39 U/L (45-117); Bilirubin, Direct 0.21 mg/dL (0.00-0.30); Globulin 3.6 g/dL (2.2-4.2); Protein, Total 7.8 g/dL (6.4-8.2)
--- NOTE | 2021-01-11 20:09 | CM.ED ---
HEAVENLY Note Patient was accepted at [facility] with the accepting MD being Segundo. MD updated and caddy packer updated. HEAVENLY upcated [facility] and advised them of patient's acceptance at [facility]. HEAVENLY called patient's mother and patient's niece and updated them of patient's discharge. Niece requested call with when patient will be transferred. HEAVENLY updated patient that he is accepted at [facility]. Heavenly advised family updated. HEAVENLY requested RN update family regarding patients discharge time. HEAVENLY called [facility] and gave them contact number for the broker in charge as this advertising copy writer is leaving. Plan: [facility] Inpatient psych Ama MCCORMICK
[2021-01-11] MEDS: Metoprolol Tartrate 100 MG Tablet PO (20:21)
[2021-01-11] MEDS: Benztropine Mesylate 0.5 MG TABLET PO (20:21)
[2021-01-11] MEDS: Spironolactone 25 MG Tablet PO (20:22)
--- NOTE | 2021-01-11 20:43 | ED.RN ---
shanta contacted to update on patients transfer to [facility] with room number and ETA of transport. John she will call patients mother and let her know as well.
== END 2021-01-11 21:05 ==
PROVIDERS: Emergency Medicine; Emergency Provider Student in an Organized Health Care Education/Training Program; PCP Family Medicine
DX: R44.0 Auditory hallucinations (principal); F31.9 Bipolar disorder, unspecified; E11.9 Type 2 diabetes mellitus without complications; K21.9 Gastro-esophageal reflux disease without esophagitis; E78.5 Hyperlipidemia, unspecified; I10 Essential (primary) hypertension; Z79.82 Long term (current) use of aspirin; Z79.84 Long term (current) use of oral hypoglycemic drugs; Z79.899 Other long term (current) drug therapy; Z87.891 Personal history of nicotine dependence
CPT/HCPCS: 80048; 80076; 80307; 81001; 82077; 85025; 87426; 93005; 99285

== ENCOUNTER → 2021-02-24 15:49 | Outpatient (CLI) | payer MEDICARE, SELFPAY ==
[2021-01-11 13:46] VITALS: BMI 35.9
[2021-02-24 19:45] LABS: Absolute Lymphocyte Count 1.41 X10^3/uL (0.83-4.51); Absolute Neutrophil Count 4.4 X10^3/uL (2.0-7.7); Basophil# 0.05 X10^3/uL; Basophil% 0.7 % (0-1); Eosinophil# 0.37 X10^3/uL; Eosinophils% 5.5 % (0-5); Hematocrit 32.3 % (40-54); Hemoglobin 10.7 g/dL (13.0-16.5); Lymphocyte # 1.41 X10^3/ul (0.83-4.51); Mean Corp Hgb Conc 33.1 g/dL (32-36); Mean Corpuscular Hgb 30.3 pg (27.0-32.0); Mean Corpuscular Volume 91.5 fL (80-94); Monocyte# 0.41 X10^3/uL; Monocyte% 6.1 % (0-10); NRBC Flagged by Analyzer 0 % (0-5); Neutrophil # 4.44 X10^3/uL (2.7-7.7); Neutrophil % 66.3 % (47-70); Platelet Count 210 K/mm3 (150-450); RBC Distribution Width CV 13.8 % (11.6-14.6); Red Blood Count 3.53 M/mm3 (4.6-6.2); White Blood Count 6.7 K/mm3 (4.4-11.0)
== END ==
PROVIDERS: PCP Family Medicine; Referring Provider Family Medicine
DX: Z79.899 Other long term (current) drug therapy (principal)
CPT/HCPCS: 36415; 85025

== ENCOUNTER → 2021-02-26 11:55 | Outpatient (CLI) | payer MEDICARE, SELFPAY ==
[2021-01-11 13:46] VITALS: BMI 35.9
[2021-02-26 15:43] LABS: Anion Gap 7 (5-15); BUN 14 mg/dL (7-18); BUN/Creat Ratio 15.2 RATIO (10-20); Calcium,Total 8.9 mg/dL (8.5-10.1); Chloride 106 mmol/L (98-107); Creatinine, Serum 0.92 mg/dL (0.70-1.30); EST Glomerular Filtration Rate 88 mL/min (>60); Est Glom Filt Rate - Afr Amer 106 mL/min (>60); Glucose 96 mg/dL (74-106); Potassium 3.8 mmol/L (3.5-5.1); Sodium Level 140 mmol/L (136-145)
== END ==
PROVIDERS: PCP Family Medicine; Referring Provider Family Medicine; Visit Provider Family Medicine
DX: I10 Essential (primary) hypertension (principal)
CPT/HCPCS: 36415; 80048

== ENCOUNTER → 2021-03-04 14:35 | Outpatient (CLI) | payer MEDICARE, SELFPAY ==
[2021-01-11 13:46] VITALS: BMI 35.9
[2021-03-04 18:06] LABS: Absolute Lymphocyte Count 1.23 X10^3/uL (0.83-4.51); Absolute Neutrophil Count 4.3 X10^3/uL (2.0-7.7); Basophil# 0.05 X10^3/uL; Basophil% 0.8 % (0-1); Eosinophils% 7.7 % (0-5); Hematocrit 30.9 % (40-54); Hemoglobin 10.5 g/dL (13.0-16.5); Lymphocyte # 1.23 X10^3/ul (0.83-4.51); Mean Corpuscular Hgb 31.1 pg (27.0-32.0); Mean Corpuscular Volume 91.4 fL (80-94); Monocyte# 0.37 X10^3/uL; Monocyte% 5.7 % (0-10); NRBC Flagged by Analyzer 0 % (0-5); Neutrophil # 4.31 X10^3/uL (2.7-7.7); Neutrophil % 66.3 % (47-70); Platelet Count 229 K/mm3 (150-450); RBC Distribution Width CV 13.9 % (11.6-14.6); RBC Distribution Width SD 45.8 fl (35.1-43.9); Red Blood Count 3.38 M/mm3 (4.6-6.2); White Blood Count 6.5 K/mm3 (4.4-11.0)
== END ==
PROVIDERS: PCP Family Medicine; Referring Provider Family Medicine
DX: Z79.899 Other long term (current) drug therapy (principal)
CPT/HCPCS: 36415; 85025

== ENCOUNTER → 2021-03-11 15:00 | Outpatient (CLI) | payer MEDICARE, SELFPAY ==
[2021-03-11 17:41] LABS: Absolute Neutrophil Count 5.3 X10^3/uL (2.0-7.7); Basophil# 0.08 X10^3/uL; Basophil% 0.9 % (0-1); Eosinophil# 0.58 X10^3/uL; Eosinophils% 6.8 % (0-5); Hematocrit 32.2 % (40-54); Hemoglobin 10.9 g/dL (13.0-16.5); Lymphocyte % 22.2 % (19-41); Mean Corp Hgb Conc 33.9 g/dL (32-36); Mean Corpuscular Hgb 31.6 pg (27.0-32.0); Mean Corpuscular Volume 93.3 fL (80-94); Monocyte# 0.65 X10^3/uL; Monocyte% 7.6 % (0-10); NRBC Flagged by Analyzer 0 % (0-5); Platelet Count 295 K/mm3 (150-450); RBC Distribution Width CV 14.3 % (11.6-14.6); RBC Distribution Width SD 48.7 fl (35.1-43.9); Red Blood Count 3.45 M/mm3 (4.6-6.2); White Blood Count 8.6 K/mm3 (4.4-11.0)
== END ==
PROVIDERS: PCP Family Medicine; Referring Provider Family Medicine
DX: Z79.899 Other long term (current) drug therapy (principal)
CPT/HCPCS: 36415; 85025

== ENCOUNTER → 2021-03-18 08:20 | Outpatient (CLI) | payer MEDICARE, SELFPAY ==
[2021-03-18 10:21] LABS: Absolute Lymphocyte Count 1.18 X10^3/uL (0.83-4.51); Absolute Neutrophil Count 3.4 X10^3/uL (2.0-7.7); Basophil# 0.05 X10^3/uL; Basophil% 0.9 % (0-1); Eosinophil# 0.44 X10^3/uL; Eosinophils% 7.9 % (0-5); Hematocrit 34.6 % (40-54); Hemoglobin 11.5 g/dL (13.0-16.5); Lymphocyte # 1.18 X10^3/ul (0.83-4.51); Lymphocyte % 21.2 % (19-41); Mean Corp Hgb Conc 33.2 g/dL (32-36); Mean Corpuscular Hgb 31.4 pg (27.0-32.0); Mean Corpuscular Volume 94.5 fL (80-94); Mean Platelet Vol. 9.9 fl (6.2-12.0); Monocyte# 0.44 X10^3/uL; Monocyte% 7.9 % (0-10); NRBC Flagged by Analyzer 0 % (0-5); Neutrophil # 3.43 X10^3/uL (2.7-7.7); Neutrophil % 61.7 % (47-70); Platelet Count 258 K/mm3 (150-450); RBC Distribution Width CV 14.6 % (11.6-14.6); RBC Distribution Width SD 49.7 fl (35.1-43.9); Red Blood Count 3.66 M/mm3 (4.6-6.2); White Blood Count 5.6 K/mm3 (4.4-11.0)
== END ==
PROVIDERS: PCP Family Medicine
DX: Z79.899 Other long term (current) drug therapy (principal)
CPT/HCPCS: 36415; 85025

== ENCOUNTER → 2021-03-26 11:01 | Outpatient (CLI) | payer MEDICARE, SELFPAY ==
[2021-03-26 12:14] LABS: Absolute Lymphocyte Count 1.79 X10^3/uL (0.83-4.51); Absolute Neutrophil Count 4.5 X10^3/uL (2.0-7.7); Basophil# 0.08 X10^3/uL; Basophil% 1.1 % (0-1); Eosinophils% 6.7 % (0-5); Hematocrit 33.5 % (40-54); Hemoglobin 11.3 g/dL (13.0-16.5); Lymphocyte # 1.79 X10^3/ul (0.83-4.51); Lymphocyte % 24.1 % (19-41); Mean Corp Hgb Conc 33.7 g/dL (32-36); Mean Corpuscular Hgb 31.6 pg (27.0-32.0); Mean Corpuscular Volume 93.6 fL (80-94); Mean Platelet Vol. 9.8 fl (6.2-12.0); Monocyte# 0.57 X10^3/uL; Monocyte% 7.7 % (0-10); NRBC Flagged by Analyzer 0 % (0-5); Neutrophil # 4.48 X10^3/uL (2.7-7.7); Neutrophil % 60.1 % (47-70); Platelet Count 220 K/mm3 (150-450); RBC Distribution Width SD 47.8 fl (35.1-43.9); Red Blood Count 3.58 M/mm3 (4.6-6.2); White Blood Count 7.4 K/mm3 (4.4-11.0)
== END ==
PROVIDERS: PCP Family Medicine; Referring Provider Family Medicine
DX: Z79.899 Other long term (current) drug therapy (principal)
CPT/HCPCS: 36415; 85025

== ENCOUNTER → 2021-04-03 10:20 | Outpatient (CLI) | payer MEDICARE, SELFPAY ==
[2021-04-03 12:31] LABS: Absolute Lymphocyte Count 1.37 X10^3/uL (0.83-4.51); Absolute Neutrophil Count 3.4 X10^3/uL (2.0-7.7); Basophil# 0.06 X10^3/uL; Basophil% 1.1 % (0-1); Eosinophil# 0.41 X10^3/uL; Eosinophils% 7.2 % (0-5); Hematocrit 36.1 % (40-54); Hemoglobin 11.9 g/dL (13.0-16.5); Lymphocyte # 1.37 X10^3/ul (0.83-4.51); Lymphocyte % 24.2 % (19-41); Mean Corpuscular Hgb 31.2 pg (27.0-32.0); Mean Corpuscular Volume 94.5 fL (80-94); Mean Platelet Vol. 9.6 fl (6.2-12.0); Monocyte# 0.38 X10^3/uL; Monocyte% 6.7 % (0-10); NRBC Flagged by Analyzer 0 % (0-5); Neutrophil # 3.42 X10^3/uL (2.7-7.7); Neutrophil % 60.4 % (47-70); Platelet Count 242 K/mm3 (150-450); RBC Distribution Width CV 13.7 % (11.6-14.6); RBC Distribution Width SD 47.6 fl (35.1-43.9); Red Blood Count 3.82 M/mm3 (4.6-6.2); White Blood Count 5.7 K/mm3 (4.4-11.0)
== END ==
PROVIDERS: PCP Family Medicine; Referring Provider Family Medicine
DX: Z79.899 Other long term (current) drug therapy (principal)
CPT/HCPCS: 36415; 85025

== ENCOUNTER → 2021-04-09 11:02 | Outpatient (CLI) | payer MEDICARE, SELFPAY ==
[2021-04-09 12:13] LABS: Absolute Lymphocyte Count 1.27 X10^3/uL (0.83-4.51); Absolute Neutrophil Count 4.5 X10^3/uL (2.0-7.7); Basophil# 0.06 X10^3/uL; Basophil% 0.9 % (0-1); Eosinophil# 0.44 X10^3/uL; Eosinophils% 6.5 % (0-5); Hematocrit 35.5 % (40-54); Lymphocyte # 1.27 X10^3/ul (0.83-4.51); Lymphocyte % 18.8 % (19-41); Mean Corp Hgb Conc 33.8 g/dL (32-36); Mean Corpuscular Hgb 31.7 pg (27.0-32.0); Mean Corpuscular Volume 93.7 fL (80-94); Mean Platelet Vol. 9.7 fl (6.2-12.0); Monocyte# 0.47 X10^3/uL; NRBC Flagged by Analyzer 0 % (0-5); Neutrophil # 4.47 X10^3/uL (2.7-7.7); Neutrophil % 66.4 % (47-70); Platelet Count 253 K/mm3 (150-450); RBC Distribution Width CV 13.3 % (11.6-14.6); RBC Distribution Width SD 45.4 fl (35.1-43.9); Red Blood Count 3.79 M/mm3 (4.6-6.2); White Blood Count 6.7 K/mm3 (4.4-11.0)
== END ==
PROVIDERS: PCP Family Medicine; Referring Provider Family Medicine
DX: Z79.899 Other long term (current) drug therapy (principal)
CPT/HCPCS: 36415; 85025

== ENCOUNTER → 2021-04-15 16:26 | Outpatient (CLI) | payer MEDICARE, SELFPAY ==
[2021-04-15 17:44] LABS: Absolute Lymphocyte Count 1.34 X10^3/uL (0.83-4.51); Basophil# 0.07 X10^3/uL; Basophil% 0.8 % (0-1); Eosinophil# 0.36 X10^3/uL; Eosinophils% 4.3 % (0-5); Hematocrit 36.2 % (40-54); Hemoglobin 12.6 g/dL (13.0-16.5); Lymphocyte # 1.34 X10^3/ul (0.83-4.51); Mean Corp Hgb Conc 34.8 g/dL (32-36); Mean Corpuscular Hgb 32.1 pg (27.0-32.0); Mean Corpuscular Volume 92.1 fL (80-94); Mean Platelet Vol. 9.4 fl (6.2-12.0); Monocyte# 0.59 X10^3/uL; NRBC Flagged by Analyzer 0 % (0-5); Neutrophil % 71.4 % (47-70); Platelet Count 281 K/mm3 (150-450); RBC Distribution Width CV 12.9 % (11.6-14.6); RBC Distribution Width SD 43.7 fl (35.1-43.9); Red Blood Count 3.93 M/mm3 (4.6-6.2); White Blood Count 8.4 K/mm3 (4.4-11.0)
== END ==
PROVIDERS: PCP Family Medicine; Referring Provider Family Medicine
DX: Z79.899 Other long term (current) drug therapy (principal)
CPT/HCPCS: 36415; 85025

== ENCOUNTER → 2021-04-22 16:15 | Outpatient (CLI) | payer MEDICARE, SELFPAY ==
[2021-04-22 17:39] LABS: Absolute Lymphocyte Count 1.42 X10^3/uL (0.83-4.51); Absolute Neutrophil Count 6.5 X10^3/uL (2.0-7.7); Basophil# 0.04 X10^3/uL; Basophil% 0.4 % (0-1); Eosinophil# 0.31 X10^3/uL; Eosinophils% 3.4 % (0-5); Hematocrit 36.2 % (40-54); Hemoglobin 12.7 g/dL (13.0-16.5); Lymphocyte # 1.42 X10^3/ul (0.83-4.51); Lymphocyte % 15.8 % (19-41); Mean Corp Hgb Conc 35.1 g/dL (32-36); Mean Corpuscular Hgb 31.7 pg (27.0-32.0); Mean Corpuscular Volume 90.3 fL (80-94); Mean Platelet Vol. 9.1 fl (6.2-12.0); Monocyte# 0.67 X10^3/uL; Monocyte% 7.5 % (0-10); NRBC Flagged by Analyzer 0 % (0-5); Neutrophil # 6.52 X10^3/uL (2.7-7.7); Neutrophil % 72.6 % (47-70); Platelet Count 271 K/mm3 (150-450); RBC Distribution Width CV 12.2 % (11.6-14.6); RBC Distribution Width SD 40.6 fl (35.1-43.9); Red Blood Count 4.01 M/mm3 (4.6-6.2)
== END ==
PROVIDERS: PCP Family Medicine; Referring Provider Family Medicine
DX: Z79.899 Other long term (current) drug therapy (principal)
CPT/HCPCS: 36415; 85025

== ENCOUNTER → 2021-05-02 09:58 | Outpatient (CLI) | payer MEDICARE, SELFPAY ==
[2021-05-02 12:04] LABS: Absolute Lymphocyte Count 1.38 X10^3/uL (0.83-4.51); Absolute Neutrophil Count 5.8 X10^3/uL (2.0-7.7); Basophil# 0.06 X10^3/uL; Basophil% 0.7 % (0-1); Eosinophil# 0.31 X10^3/uL; Eosinophils% 3.8 % (0-5); Hematocrit 37.9 % (40-54); Hemoglobin 13.1 g/dL (13.0-16.5); Lymphocyte # 1.38 X10^3/ul (0.83-4.51); Lymphocyte % 17.1 % (19-41); Mean Corp Hgb Conc 34.6 g/dL (32-36); Mean Corpuscular Hgb 31.3 pg (27.0-32.0); Mean Corpuscular Volume 90.5 fL (80-94); Monocyte% 6.2 % (0-10); NRBC Flagged by Analyzer 0 % (0-5); Platelet Count 261 K/mm3 (150-450); RBC Distribution Width CV 11.9 % (11.6-14.6); RBC Distribution Width SD 39.2 fl (35.1-43.9); Red Blood Count 4.19 M/mm3 (4.6-6.2); White Blood Count 8.1 K/mm3 (4.4-11.0)
== END ==
PROVIDERS: PCP Family Medicine; Referring Provider Family Medicine
DX: Z79.899 Other long term (current) drug therapy (principal)
CPT/HCPCS: 36415; 85025

== ENCOUNTER 2021-05-25 18:27 | Emergency (ER) | payer MEDICARE, SELFPAY ==
[2021-05-25 18:27] VITALS: BP 179/109; PULSE 77; RESP 16; TEMP 36.6; O2SAT 97; BMI 26.6
--- NOTE | 2021-05-25 18:53 | CT_ITS ---
EXAMINATION : Head CT w/out contrast HISTORY : Change in Mental Status COMPARISON : None. TECHNIQUE : Multiple contiguous axial images were obtained from the skull base to the vertex without intravenous contrast. A radiation dose optimization technique was used for this scan. FINDINGS : There is no evidence for acute intracranial hemorrhage, mass effect, or midline shift. There is no extra-axial fluid collection. Normal ventricles and sulci. There are periventricular white matter changes consistent with chronic microvascular ischemic disease. There is normal roper-white differentiation, without CT evidence of acute ischemia or infarct. The skull base and calvarium are unremarkable. The orbits are unremarkable. The paranasal sinuses are clear. The mastoid air cells are well-aerated. The soft tissues are unremarkable. CT/Brain/Head without Contrast IMPRESSION: No acute intracranial abnormality. Chronic ischemic changes of the brain. Electronically Signed: Marshal Medrano MD at 20:11 EST Tel , Service support ,
--- NOTE | 2021-05-25 18:53 | EKG12_ITS ---
Test Reason : DYSRHYTHMIA Blood Pressure : / mmHG Vent. Rate : 075 BPM Atrial Rate : 075 BPM P-R Int : 126 ms QRS Dur : 092 ms QT Int : 390 ms P-R-T Axes : 037 016 067 degrees QTc Int : 435 ms Normal sinus rhythm Nonspecific ST abnormality Abnormal ECG Confirmed by LESLEE BRAVO, NAOMI ([id number]), make up editor KASSANDRA BELLE ([id number]) on 05/28/2021 9:10:13 AM Referred By: JOSE M Confirmed By:NAOMI CAMILO MD
--- NOTE | 2021-05-25 18:54 | EX.ED.VIS.PS ---
HPI HPI - Psych History of Present Illness Chief Complaint: Mental Health Informant: patient and family Onset/Context/Timing Context: Gradual Onset Timing: Continuous Associated Symptoms Associated Symptoms - Psych: Positive for Easily distracted and Flight of Ideas Narrative Narrative: Patient presents with abnormal behavior. Patient is a poor historian. Patient does not answer questions appropriately. Patient was reportedly seeing visions. Patient denies any suicidal or homicidal ideations. Family was contacted. Apparently patient had a closed head injury in the past which caused his abnormal behaviors. Patient has been hospitalized in the past for this at [facility]. [facility] Medical History Depression Diabetes GERD (gastroesophageal reflux disease) Hyperlipemia Hypertension Home Medications amlodipine 10 mg PO DAILY 09/30/14 [History Last Taken Unknown] aspirin 81 mg PO DAILY@0800 09/30/14 [History Last Taken Unknown] fenofibrate nanocrystallized 145 mg PO DAILY 09/30/14 [History Last Taken Unknown] metoprolol tartrate 100 mg PO BID 09/30/14 [History Last Taken Unknown] risperidone [Risperdal] 4 mg PO DAILY 09/30/14 [History Last Taken Unknown] sertraline 200 mg PO DAILY 09/30/14 [History Last Taken Unknown] spironolactone 25 mg PO BID 09/30/14 [History Last Taken Unknown] benztropine 0.5 mg BID 01/11/21 [History Last Taken Unknown] lisinopril 40 mg PO DAILY 01/11/21 [History Last Taken Unknown] lovastatin 20 mg PO DAILY 01/11/21 [History Last Taken Unknown] metformin 1,000 mg PO DAILY 01/11/21 [History Last Taken Unknown] omeprazole 40 mg PO DAILY 01/11/21 [History Last Taken Unknown] Invega 3 mg PO/SL BID 05/25/21 [History Last Taken Unknown] Allergy/AdvReac Type Severity Reaction Status Date / Time lithium Allergy Other Verified 05/25/21 18:33 levofloxacin [From Levaquin] AdvReac Pain in Verified 05/25/21 18:33 joints Social History Smoking Status: Former smoker ROS ROS ED Review of Systems ROS Unobtainable: due to mental condition EXAM Physical Exam Const Vital Signs: 05/25/21 18:27 05/25/21 20:00 05/25/21 20:56 Temperature 97.8 F Temperature Source Temporal Pulse Rate 77 Respiratory Rate 16 15 15 Blood Pressure 179/109 H Blood Pressure Mean 132 Pulse Ox 97 Oxygen Delivery Method Room Air Room Air Room Air 05/25/21 23:00 05/26/21 00:53 05/26/21 01:00 Temperature Temperature Source Pulse Rate 66 Respiratory Rate 16 14 15 Blood Pressure 180/107 H Blood Pressure Mean 131 Pulse Ox 95 Oxygen Delivery Method Room Air Room Air Positive well nourished and well developed General Appearance ED: well developed HEENT Reports moist mucous membranes Neck supple and no JVD Resp normal respiratory effort and clear to auscultation bilaterally Cardio Rate: regular rate Rhythm: regular rhythm GI non-tender and non-distended Auscultation: normoactive bowel sounds Palpation: soft Extremity normal to inspection General Extremety ED: Negative for edema General Extremity: Negative for edema Neuro CN's II-XII intact bilaterally and no sensory deficits noted Sensorium / Orientation: alert and confused Psych Thought Process: disorganized, confused and flight of ideas Attention / Concentration: concentration grossly impaired Memory / Cognition: cognition grossly impaired MDM MDM MDM Narrative Medical decision making narrative: EKG was obtained. On my interpretation, it showed a normal sinus rhythm with a rate of 75. MO interval, QRS interval, and QTc intervals were all normal. Coplay was normal. There are no acute ST or T wave changes. CT scan of the brain was obtained. There is no acute infarct or bleed noted. There are chronic changes noted. This was interpreted by the radiologist and reviewed by myself. CBC and basic metabolic profile were obtained and were essentially within normal limits. Serum alcohol level was normal. Urine tox screen was negative. COVID-19 rapid antigen was obtained and was negative. Patient began trying to get up and leave. Patient is still confused. Patient was given a dose of Ativan. Case was discussed with crisis. They will attempt to get the patient placed in a psychiatric facility. Care of the patient was turned over to the oncoming physician pending psychiatric placement. Lab Data Attestation: I reviewed the patient's lab results. Labs: Laboratory Results - last 24 hr 05/25/21 05/25/21 05/25/21 18:55 18:55 18:55 WBC 10.2 RBC 4.45 L Hgb 13.8 Hct 39.9 L MCV 89.7 MCH 31.0 MCHC 34.6 RDW Std Deviation 38.5 RDW Coeff of Osmel 11.8 Plt Count 255 MPV 8.8 Immature Gran % (Auto) 0.300 Neut % (Auto) 72.3 H Lymph % (Auto) 17.8 L Borden % (Auto) 6.8 Eos % (Auto) 2.4 Baso % (Auto) 0.4 Absolute Neuts (auto) 7.4 Absolute Lymphs (auto) 1.82 Nucleated RBC % 0 Sodium 138 Potassium 3.7 Chloride 108 H Carbon Dioxide 23.0 Anion Gap 7 BUN 24 H Creatinine 1.14 Estim Creat Clear Calc 64.60 Est GFR (MDRD) Af Amer 83 Est GFR (MDRD) Non-Af 68 BUN/Creatinine Ratio 21.1 H Glucose 154 H Calcium 9.0 Urine Opiates Screen Urine Methadone Screen Ur Barbiturates Screen Ur Phencyclidine Scrn Ur Amphetamines Screen U Methamphetamin-MDMA U Benzodiazepines Scrn Urine Cocaine Screen U Cannabinoids Screen Ur Drug Screen Comment Ethyl Alcohol < 3.0 05/25/21 20:50 WBC RBC Hgb Hct MCV MCH MCHC RDW Std Deviation RDW Coeff of Osmel Plt Count MPV Immature Gran % (Auto) Neut % (Auto) Lymph % (Auto) Borden % (Auto) Eos % (Auto) Baso % (Auto) Absolute Neuts (auto) Absolute Lymphs (auto) Nucleated RBC % Sodium Potassium Chloride Carbon Dioxide Anion Gap BUN Creatinine Estim Creat Clear Calc Est GFR (MDRD) Af Amer Est GFR (MDRD) Non-Af BUN/Creatinine Ratio Glucose Calcium Urine Opiates Screen NEGATIVE Urine Methadone Screen NEGATIVE Ur Barbiturates Screen NEGATIVE Ur Phencyclidine Scrn NEGATIVE Ur Amphetamines Screen NEGATIVE U Methamphetamin-MDMA NEGATIVE U Benzodiazepines Scrn NEGATIVE Urine Cocaine Screen NEGATIVE U Cannabinoids Screen NEGATIVE Ur Drug Screen Comment Ethyl Alcohol Radiography Diagnostic Testing: Clinical Impression(s) from Imaging Studies Brain CT 05/25/21 18:53 IMPRESSION: No acute intracranial abnormality. Chronic ischemic changes of the brain. Electronically Signed: Marshal Medrano MD at 20:11 EST Tel , Service support , EKG Initial EKG: Attestation: I personally reviewed and interpreted this EKG as follows: Interpretation: Sinus Rhythm (75) and Non-Specific ST Changes Prior EKG tracings: available for review Prior: Unchanged (01/11/2021) Discharge Plan Triage Chief Complaint: Mental Health ED Provider: Brian Andrews Dx/Rx/DC Orders Clinical Impression: Hallucination, visual Prescriptions: No Action metoprolol tartrate 100 MG tablet 100 mg PO BID RF: 0 risperidone [Risperdal] 4 MG tablet 4 mg PO DAILY RF: 0 sertraline 100 MG tablet 200 mg PO DAILY RF: 0 aspirin 81 MG tablet 81 mg PO DAILY@0800 RF: 0 amlodipine 10 MG tablet 10 mg PO DAILY RF: 0 spironolactone 50 MG tablet 25 mg PO BID RF: 0 fenofibrate nanocrystallized 145 MG tablet 145 mg PO DAILY RF: 0 benztropine 0.5 mg tablet 0.5 mg BID RF: 0 omeprazole 40 mg Capsule,Delayed Release(Dr/Ec) 40 mg PO DAILY RF: 0 metformin 1,000 mg Tablet 1,000 mg PO DAILY RF: 0 lisinopril 40 mg Tablet 40 mg PO DAILY RF: 0 lovastatin 20 mg Tablet Extended Release 24 Hr 20 mg PO DAILY RF: 0 Invega 3 mg PO/SL BID RF: 0 Primary Care Provider: José Stein Referrals: José Stein MD [Primary Care Provider] -
[2021-05-25 19:06] LABS: Absolute Lymphocyte Count 1.82 X10^3/uL (0.83-4.51); Absolute Neutrophil Count 7.4 X10^3/uL (2.0-7.7); Basophil# 0.04 X10^3/uL; Basophil% 0.4 % (0-1); Eosinophil# 0.25 X10^3/uL; Eosinophils% 2.4 % (0-5); Hematocrit 39.9 % (40-54); Hemoglobin 13.8 g/dL (13.0-16.5); Lymphocyte # 1.82 X10^3/ul (0.83-4.51); Lymphocyte % 17.8 % (19-41); Mean Corp Hgb Conc 34.6 g/dL (32-36); Mean Corpuscular Volume 89.7 fL (80-94); Mean Platelet Vol. 8.8 fl (6.2-12.0); Monocyte% 6.8 % (0-10); NRBC Flagged by Analyzer 0 % (0-5); Neutrophil % 72.3 % (47-70); Platelet Count 255 K/mm3 (150-450); RBC Distribution Width CV 11.8 % (11.6-14.6); RBC Distribution Width SD 38.5 fl (35.1-43.9); Red Blood Count 4.45 M/mm3 (4.6-6.2); White Blood Count 10.2 K/mm3 (4.4-11.0)
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
[2021-05-25 19:36] LABS: Alcohol, Blood (Medical)-Serum < 3.0 mg/dL
[2021-05-25 19:37] LABS: Anion Gap 7 (5-15); BUN 24 mg/dL (7-18); BUN/Creat Ratio 21.1 RATIO (10-20); Chloride 108 mmol/L (98-107); Creatinine, Serum 1.14 mg/dL (0.70-1.30); EST Glomerular Filtration Rate 68 mL/min (>60); Est Glom Filt Rate - Afr Amer 83 mL/min (>60); Glucose 154 mg/dL (74-106); Potassium 3.7 mmol/L (3.5-5.1); Sodium Level 138 mmol/L (136-145)
[2021-05-25 20:00] VITALS: RESP 15
[2021-05-25 20:56] VITALS: RESP 15
--- NOTE | 2021-05-25 21:25 | ED.RN ---
[facility] NOTIFIED ABOUT PT
[2021-05-25 21:42] LABS: Amphetamine Urine VISTA NEGATIVE (<1000 ng/mL); Barbiturate Urine VISTA NEGATIVE (< 200 ng/mL); Benzodiazepine Urine VISTA NEGATIVE (< 200 ng/mL); Cocaine Urine VISTA NEGATIVE (< 300 ng/mL); Ecstacy Urine VISTA NEGATIVE (< 500 ng/mL); Methadone Urine VISTA NEGATIVE (< 300 ng/mL); PCP Urine VISTA NEGATIVE (< 25 ng/mL); THC Urine VISTA NEGATIVE (< 50 ng/mL); Vista UDS pH Range 5
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
--- NOTE | 2021-05-25 21:55 | ED.RN ---
PAPERWORK FAXED TO CRIS[facility]
[2021-05-25 23:00] VITALS: BP 180/107; PULSE 66; RESP 16; O2SAT 95
[2021-05-26] VITALS (14 sets, daily range): BP systolic 138–185; BP diastolic 32–101; PULSE 60–85; RESP 14–18; TEMP 36.4–37.1; O2SAT 95–97
[2021-05-26] MEDS: LORazepam 2 MG/ML Syringe 1 MG IM (00:29)
--- NOTE | 2021-05-26 02:46 | ED.RN ---
DENIED AT [facility], [facility] AWARE
--- NOTE | 2021-05-26 03:54 | ED.RN ---
PT HAS BEEN REFUSED AT [facility]. [facility] AWARE.
--- NOTE | 2021-05-26 08:32 | NURSING ---
CALLED [facility]. TALKED TO MERNA. KEYSHA SENT CHART TO [facility]. PER MERNA, THEY DON'T REVIEW CHARTS UNTIL 9 OR 10 AND SHE WILL FOLLOWUP ABOUT THAT TIME
[2021-05-26] MEDS: Metoprolol Tartrate 100 MG Tablet PO (09:04)
[2021-05-26] MEDS: metFORMIN HCl 1,000 MG Tablet 1000 MG PO (09:04)
[2021-05-26] MEDS: Benztropine Mesylate 0.5 MG TABLET PO (09:04)
[2021-05-26] MEDS: Sertraline 100 MG Tablet 200 MG PO (09:04)
[2021-05-26] MEDS: Aspirin E.C. 81 MG Tablet PO (09:05)
[2021-05-26] MEDS: Lisinopril 40 MG Tablet PO (09:05)
[2021-05-26] MEDS: RisperiDONE 2 MG Tablet 4 MG PO (09:05)
[2021-05-26] MEDS: amLODIPine 10 MG Tablet PO (09:05)
[2021-05-26] MEDS: Paliperidone 1.5 MG TAB.ER.24 3 MG PO (09:06)
[2021-05-26] MEDS: Spironolactone 25 MG Tablet PO (09:06)
--- NOTE | 2021-05-26 10:40 | CM.ED ---
SOCIAL WORK Call to [facility] to inquire about referral and time that referrals are reviewed as per Judith with Crisis, [facility] does not review referral until 9a or 10a. Per intake, they are 24/7 and referral should be reviewed /. This worker to discuss with Crisis. Informed by nursing patient's mother requests to speak with this worker. Met with patient's mother who is requesting referral to facility closer than [place]. Discussed insurance and facilities with patient's mother. This worker to discuss referral with [facility]. Call to Crisis to request copy of assessment as there is not one on patient's chart at this time. Judith to fax over assessment. Informed Judith this worker going to assist with placement as discussed with mother. Judith thanking this worker. Referral called to [facility], they are not in network with [facility]. Referral called and faxed to [facility] at this time as they are in network with [facility]. Staff updated on the above. Plan: Pending review at [facility] Artis Vilchis MSW, APPLICATIONS ADMINISTRATOR
--- NOTE | 2021-05-26 11:46 | CM.ED ---
SOCIAL WORK Received call from Estephania with [facility] with questions for patient's mother, call facilitated to patient's mother. Artis Vilchis, DRIVER LICENSE AGENT, EDUCATION FINANCE PROCESSOR
--- NOTE | 2021-05-26 12:29 | CM.ED ---
SOCIAL WORK Informed by intake with [facility], patient has been accepted and requested [place] be faxed. Copy of [place] faxed. Awaiting call back regarding time of transport and accepting information. Artis Vilchis, PRIMARY MONTESSORI TEACHER, LEAD PL SQL DEVELOPER
--- NOTE | 2021-05-26 13:22 | CM.ED ---
Call to [facility] to check on status of transport and accepting information. Intake reports will reach out to health insurance assessor and call this worker back. Artis Vilchis, AFTER SCHOOL CAREGIVER, PROBATION MANAGER
--- NOTE | 2021-05-26 13:35 | CM.ED ---
SOCIAL WORK Patient has been accepted to [facility] by Dr. Field. Nurse to call report to [phone]. Intake has set up transport for a 15:15 picking crew supervisor. Mother updated and provided with contact information for facility. Staff and Crisis updated. Artis Vilchis, AUDIT CONTROL CLERK, RESTRIKE HAMMER OPERATOR
[2021-05-26] MEDS: LORazepam 1 MG Tablet PO (13:44)
[2021-05-26] MEDS: Pantoprazole Sodium 40 MG Tablet PO (13:44)
--- NOTE | 2021-05-30 09:20 | ED.RN ---
LEFT MESSAGE TO NOTIFY THAT PT SUE IS AT [facility]
--- NOTE | 2021-05-30 11:21 | ED.RN ---
PER MOTHER, PT NO LONGER TAKING THIS MEDICATION. DISPOSE OF MEDS
== END 2021-05-26 15:38 ==
PROVIDERS: Emergency Provider Emergency Medicine; PCP Family Medicine
DX: R44.1 Visual hallucinations (principal); I67.82 Cerebral ischemia; E11.9 Type 2 diabetes mellitus without complications; E78.5 Hyperlipidemia, unspecified; F32.A Depression, unspecified; I10 Essential (primary) hypertension; K21.9 Gastro-esophageal reflux disease without esophagitis; Z79.82 Long term (current) use of aspirin; Z79.84 Long term (current) use of oral hypoglycemic drugs; Z87.891 Personal history of nicotine dependence; Z79.899 Other long term (current) drug therapy
CPT/HCPCS: 36415; 70450; 80048; 80307; 82077; 85025; 87426; 93005; 96372; 99285

== ENCOUNTER → 2021-07-03 08:57 | Outpatient (CLI) | payer MEDICARE, SELFPAY ==
[2021-07-03 10:20] LABS: Cholesterol 115 mg/dL (200); High Density Lipoprotein 44 mg/dL; Triglycerides 111 mg/dL; Very Low Density Lipoprotein 22 mg/dL (5-40)
== END ==
PROVIDERS: PCP Family Medicine; Referring Provider Family Medicine; Visit Provider Family Medicine
DX: E78.5 Hyperlipidemia, unspecified (principal)
CPT/HCPCS: 36415; 80061

== ENCOUNTER 2021-09-30 09:28 | Outpatient (CLI) | payer MEDICARE, SELFPAY ==
[2021-09-30 10:43] LABS: Anion Gap 5 (5-15); BUN 15 mg/dL (7-18); BUN/Creat Ratio 11.8 RATIO (10-20); Calcium,Total 8.9 mg/dL (8.5-10.1); Chloride 99 mmol/L (98-107); Cholesterol 111 mg/dL (200); Creatinine, Serum 1.27 mg/dL (0.70-1.30); EST Glomerular Filtration Rate 60 mL/min (>60); Est Glom Filt Rate - Afr Amer 73 mL/min (>60); Glucose 107 mg/dL (74-106); High Density Lipoprotein 41 mg/dL; Potassium 4.1 mmol/L (3.5-5.1); Sodium Level 131 mmol/L (136-145); Triglycerides 137 mg/dL; Very Low Density Lipoprotein 27 mg/dL (5-40)
== END 2021-09-30 23:59 | disposition home or self-care (01) ==
LOC: MFPLAB 09:28
PROVIDERS: PCP Family Medicine; Referring Provider Family Medicine; Visit Provider Family Medicine
DX: E11.9 Type 2 diabetes mellitus without complications (principal)
CPT/HCPCS: 36415; 80048; 80061

== ENCOUNTER → 2021-10-03 | Outpatient (CLI) | payer MEDICARE, SELFPAY ==
[2021-10-03 09:55] LABS: Hematocrit 38.5 % (40-54); Hemoglobin 13.5 g/dL (13.0-16.5); Mean Corp Hgb Conc 35.1 g/dL (32-36); Mean Corpuscular Hgb 31.6 pg (27.0-32.0); Mean Corpuscular Volume 90.2 fL (80-94); Mean Platelet Vol. 9.4 fl (6.2-12.0); Platelet Count 219 K/mm3 (150-450); RBC Distribution Width SD 39.8 fl (35.1-43.9); Red Blood Count 4.27 M/mm3 (4.6-6.2); White Blood Count 5.5 K/mm3 (4.4-11.0)
[2021-10-03 10:19] LABS: Valproic Acid (Depakene) Level 24 ug/mL (50-100)
[2021-10-03 11:35] LABS: ALB/GLOB Ratio 1.2 RATIO (0.9-2.4); AST(SGOT) 22 U/L (15-37); Alanine Aminotransfer ALT/SGPT 25 U/L (16-61); Albumin, Serum 3.8 g/dL (3.2-5.0); Alkaline Phosphatase 28 U/L (45-117); Anion Gap 4 (5-15); BUN 21 mg/dL (7-18); BUN/Creat Ratio 17.4 RATIO (10-20); Calcium,Total 8.8 mg/dL (8.5-10.1); Chloride 99 mmol/L (98-107); Creatinine, Serum 1.21 mg/dL (0.70-1.30); EST Glomerular Filtration Rate 64 mL/min (>60); Est Glom Filt Rate - Afr Amer 77 mL/min (>60); Globulin 3.2 g/dL (2.2-4.2); Glucose 116 mg/dL (74-106); Prolactin 14.3 ng/mL; Sodium Level 131 mmol/L (136-145)
== END | disposition home or self-care (01) ==
PROVIDERS: PCP Family Medicine; Referring Provider Family Medicine; Visit Provider Counselor Mental Health
DX: F25.0 Schizoaffective disorder, bipolar type (principal)
CPT/HCPCS: 36415; 80053; 80164; 82306; 84146; 85027

== ENCOUNTER → 2021-12-30 | Outpatient (CLI) | payer MEDICARE, SELFPAY ==
[2021-12-30 10:10] LABS: Hematocrit 37.1 % (40-54); Hemoglobin 13.1 g/dL (13.0-16.5); Mean Corp Hgb Conc 35.3 g/dL (32-36); Mean Corpuscular Hgb 32.3 pg (27.0-32.0); Mean Corpuscular Volume 91.4 fL (80-94); Mean Platelet Vol. 9.3 fl (6.2-12.0); Platelet Count 217 K/mm3 (150-450); RBC Distribution Width CV 12.2 % (11.6-14.6); RBC Distribution Width SD 40.9 fl (35.1-43.9); Red Blood Count 4.06 M/mm3 (4.6-6.2); White Blood Count 5.7 K/mm3 (4.4-11.0)
[2021-12-30 10:29] LABS: Vitamin B12 287 pg/mL (211-911); Vitamin D,25 Hydroxy 36.9 ng/mL
[2021-12-30 11:04] LABS: ALB/GLOB Ratio 1.1 RATIO (0.9-2.4); AST(SGOT) 16 U/L (15-37); Alanine Aminotransfer ALT/SGPT 27 U/L (16-61); Albumin, Serum 3.5 g/dL (3.2-5.0); Alkaline Phosphatase 29 U/L (45-117); Anion Gap 7 (5-15); BUN 20 mg/dL (7-18); BUN/Creat Ratio 15.5 RATIO (10-20); Calcium,Total 8.5 mg/dL (8.5-10.1); Chloride 97 mmol/L (98-107); Creatinine, Serum 1.29 mg/dL (0.70-1.30); EST Glomerular Filtration Rate 59 mL/min (>60); Est Glom Filt Rate - Afr Amer 72 mL/min (>60); Globulin 3.2 g/dL (2.2-4.2); Glucose 115 mg/dL (74-106); Protein, Total 6.7 g/dL (6.4-8.2); Sodium Level 131 mmol/L (136-145); Thyroid Stim Hormone (TSH) 2.52 uIU/mL (0.358-3.74)
[2021-12-30 11:17] LABS: Valproic Acid (Depakene) Level 45 ug/mL (50-100)
[2021-12-30 12:45] LABS: Hemoglobin A1c 5.5 % (3.8-5.6)
== END | disposition home or self-care (01) ==
LOC: MTLAB 08:42
PROVIDERS: PCP Family Medicine
DX: E55.9 Vitamin D deficiency, unspecified (principal); F19.10 Other psychoactive substance abuse, uncomplicated; R53.83 Other fatigue; Z79.899 Other long term (current) drug therapy
CPT/HCPCS: 36415; 80053; 80164; 82306; 82607; 83036; 84443; 85027

== ENCOUNTER → 2022-04-01 | Outpatient (CLI) | payer MEDICARE, SELFPAY ==
[2022-04-01 12:42] LABS: AST(SGOT) 18 U/L (15-37); Alanine Aminotransfer ALT/SGPT 27 U/L (16-61); Albumin, Serum 3.5 g/dL (3.2-5.0); Alkaline Phosphatase 33 U/L (45-117); Anion Gap 10 (5-15); BUN 15 mg/dL (7-18); Chloride 97 mmol/L (98-107); Creatinine, Serum 1.07 mg/dL (0.70-1.30); EST Glomerular Filtration Rate 73 mL/min (>60); Est Glom Filt Rate - Afr Amer 89 mL/min (>60); Globulin 3.6 g/dL (2.2-4.2); Glucose 115 mg/dL (74-106); Protein, Total 7.1 g/dL (6.4-8.2); Sodium Level 132 mmol/L (136-145); Thyroid Stim Hormone (TSH) 2.44 uIU/mL (0.358-3.74)
[2022-04-01 12:48] LABS: Erythrocyte Sedimentation Rate 5 mm/hr (0-20)
== END | disposition home or self-care (01) ==
PROVIDERS: Family Medicine; PCP Family Medicine; Referring Provider Family Medicine; Visit Provider Family Medicine
DX: M62.81 Muscle weakness (generalized) (principal); I10 Essential (primary) hypertension
CPT/HCPCS: 36415; 80053; 84443; 85652

== ENCOUNTER → 2022-06-08 | Outpatient (CLI) | payer MEDICARE, SELFPAY ==
[2022-06-08 13:23] LABS: Anion Gap 10 (5-15); BUN 15 mg/dL (7-18); BUN/Creat Ratio 15.2 RATIO (10-20); Chloride 99 mmol/L (98-107); Cholesterol 141 mg/dL (200); Creatinine, Serum 0.98 mg/dL (0.70-1.30); EST Glomerular Filtration Rate 81 mL/min (>60); Est Glom Filt Rate - Afr Amer 98 mL/min (>60); Glucose 102 mg/dL (74-106); High Density Lipoprotein 45 mg/dL; PSA,Total - Annual Screen 0.22 ng/mL (0.00-4.00); Potassium 4.1 mmol/L (3.5-5.1); Sodium Level 132 mmol/L (136-145); Thyroid Stim Hormone (TSH) 2.86 uIU/mL (0.358-3.74); Triglycerides 146 mg/dL; Very Low Density Lipoprotein 29 mg/dL (5-40)
== END | disposition home or self-care (01) ==
LOC: MFPLAB 09:28
PROVIDERS: PCP Family Medicine; Visit Provider Family Medicine
DX: Z00.00 Encounter for general adult medical examination without abnormal findings (principal); E11.9 Type 2 diabetes mellitus without complications; I10 Essential (primary) hypertension; E78.5 Hyperlipidemia, unspecified; Z12.5 Encounter for screening for malignant neoplasm of prostate
CPT/HCPCS: 36415; 80048; 80061; 84153; 84403; 84443; G0103

== ENCOUNTER → 2022-10-16 | Outpatient (CLI) | payer MEDICARE, SELFPAY ==
[2022-10-16 10:29] LABS: ALB/GLOB Ratio 1.1 RATIO (0.9-2.4); AST(SGOT) 18 U/L (15-37); Alanine Aminotransfer ALT/SGPT 24 U/L (16-61); Albumin, Serum 3.6 g/dL (3.2-5.0); Alkaline Phosphatase 34 U/L (45-117); Anion Gap 9 (5-15); BUN 19 mg/dL (7-18); Calcium,Total 8.9 mg/dL (8.5-10.1); Chloride 98 mmol/L (98-107); Cholesterol 136 mg/dL (200); Creatinine, Serum 1.12 mg/dL (0.70-1.30); EST Glomerular Filtration Rate 70 mL/min (>60); Est Glom Filt Rate - Afr Amer 84 mL/min (>60); Globulin 3.2 g/dL (2.2-4.2); Glucose 126 mg/dL (74-106); High Density Lipoprotein 41 mg/dL; Protein, Total 6.8 g/dL (6.4-8.2); Sodium Level 132 mmol/L (136-145); Triglycerides 135 mg/dL; Very Low Density Lipoprotein 27 mg/dL (5-40)
== END | disposition home or self-care (01) ==
LOC: MFPLAB 09:05
PROVIDERS: PCP Family Medicine; Referring Provider Family Medicine; Visit Provider Family Medicine
DX: E78.5 Hyperlipidemia, unspecified (principal)
CPT/HCPCS: 36415; 80053; 80061

== ENCOUNTER → 2023-02-11 | Outpatient (CLI) | payer MEDICARE, SELFPAY ==
[2023-02-11 16:08] LABS: Anion Gap 8 (5-15); BUN 13 mg/dL (7-18); BUN/Creat Ratio 11.4 RATIO (10-20); Calcium,Total 8.7 mg/dL (8.5-10.1); Chloride 98 mmol/L (98-107); Creatinine, Serum 1.14 mg/dL (0.70-1.30); EST Glomerular Filtration Rate 68 mL/min (>60); Est Glom Filt Rate - Afr Amer 82 mL/min (>60); Glucose 121 mg/dL (74-106); Sodium Level 134 mmol/L (136-145)
== END | disposition home or self-care (01) ==
LOC: MFPLAB 14:04
PROVIDERS: PCP Family Medicine; Visit Provider Family Medicine
DX: R60.9 Edema, unspecified (principal)
CPT/HCPCS: 36415; 80048

== ENCOUNTER → 2023-07-22 | Outpatient (CLI) | payer MEDICARE, SELFPAY ==
[2023-07-22 10:57] LABS: Anion Gap 5 (5-15); BUN 19 mg/dL (7-18); Calcium,Total 8.4 mg/dL (8.5-10.1); Chloride 98 mmol/L (98-107); Cholesterol 128 mg/dL (200); Creatinine, Serum 1.12 mg/dL (0.70-1.30); EST Glomerular Filtration Rate 69 mL/min (>60); Est Glom Filt Rate - Afr Amer 84 mL/min (>60); Glucose 126 mg/dL (74-106); Hemoglobin A1c 6.2 % (3.8-5.6); High Density Lipoprotein 37 mg/dL; Potassium 4.3 mmol/L (3.5-5.1); Sodium Level 132 mmol/L (136-145); Triglycerides 179 mg/dL; Very Low Density Lipoprotein 36 mg/dL (5-40)
== END | disposition home or self-care (01) ==
LOC: MFPLAB 08:25
PROVIDERS: PCP Family Medicine; Visit Provider Family Medicine
DX: E11.9 Type 2 diabetes mellitus without complications (principal); E78.5 Hyperlipidemia, unspecified
CPT/HCPCS: 36415; 80048; 80061; 83036

== ENCOUNTER → 2023-11-10 | Outpatient (CLI) | payer MEDICARE, SELFPAY ==
--- NOTE | 2023-11-10 11:22 | MRI_ITS ---
STUDY: MRI LEFT MIDFOOT REASON FOR EXAM: Male, 67 years old. LT FOOT, OSTEOARTHRITIS, PAIN, DIABETIC POLYNEUROPATHY TECHNIQUE: Standardized fat and water weighted pulse sequences were obtained in all 3 orthogonal planes. COMPARISON: None. FINDINGS: There is a small tibiotalar joint effusion. Normal talonavicular articulation. Normal calcaneocuboid articulation. Normal navicular-cuneiform articulations. Normal intercuneiform articulations. Normal first tarsometatarsal articulation. Normal Lisfranc ligament. Normal second and third tarsometatarsal articulations. Normal cuboid fourth and cuboid fifth tarsometatarsal articulation. Normal first through fifth metatarsi. There is tendinosis of the tibialis anterior tendon with thickening and increased intrasubstance signal. Normal extensor hallucis longus tendon. Normal extensor digitorum longus tendons. Normal peroneus longus tendon and distal insertion. Normal peroneus brevis tendon and distal insertion. There is atrophy and fatty infiltration of the intrinsic muscles of the mid and forefoot region. Normal extensor digitorum brevis muscle. Normal subcutis adipose space. There is no demonstrated soft tissue mass lesion. MRI/Lower Ext/No Jt/w/o IMPRESSION: Anterior tibialis tendinosis. Small tibiotalar joint effusion. Atrophy and fatty infiltration of the intrinsic muscles of the foot. Electronically Signed: Leonardo Dewitt MD at 16:08 EDT ,
== END | disposition home or self-care (01) ==
PROVIDERS: PCP Family Medicine; Referring Provider Podiatrist; Visit Provider Podiatrist
DX: M19.072 Primary osteoarthritis, left ankle and foot (principal); E11.42 Type 2 diabetes mellitus with diabetic polyneuropathy; M79.672 Pain in left foot; G60.8 Other hereditary and idiopathic neuropathies
CPT/HCPCS: 73718

== ENCOUNTER → 2023-12-30 | Outpatient (CLI) | payer MEDICARE, SELFPAY ==
[2023-12-30 10:04] LABS: Hematocrit 39.7 % (40-54); Hemoglobin 13.5 g/dL (13.0-16.5); Mean Corpuscular Hgb 30.5 pg (27.0-32.0); Mean Corpuscular Volume 89.8 fL (80-94); Mean Platelet Vol. 9.5 fl (6.2-12.0); Platelet Count 223 K/mm3 (150-450); RBC Distribution Width CV 12.6 % (11.6-14.6); RBC Distribution Width SD 41.8 fl (35.1-43.9); Red Blood Count 4.42 M/mm3 (4.6-6.2); White Blood Count 6.3 K/mm3 (4.4-11.0)
[2023-12-30 10:48] LABS: Vitamin D,25 Hydroxy 26.6 ng/mL
[2023-12-30 11:10] LABS: Valproic Acid (Depakene) Level 31 ug/mL (50-100)
[2023-12-30 15:46] LABS: ALB/GLOB Ratio 1.1 RATIO (0.9-2.4); AST(SGOT) 20 U/L (15-37); Alanine Aminotransfer ALT/SGPT 25 U/L (16-61); Albumin, Serum 3.5 g/dL (3.2-5.0); Alkaline Phosphatase 37 U/L (45-117); Anion Gap 4 (5-15); BUN 14 mg/dL (7-18); BUN/Creat Ratio 12.8 RATIO (10-20); Calcium,Total 8.9 mg/dL (8.5-10.1); Chloride 101 mmol/L (98-107); Cholesterol 127 mg/dL (200); Creatinine, Serum 1.09 mg/dL (0.70-1.30); EST Glomerular Filtration Rate 72 mL/min (>60); Est Glom Filt Rate - Afr Amer 87 mL/min (>60); Globulin 3.2 g/dL (2.2-4.2); Glucose 149 mg/dL (74-106); High Density Lipoprotein 39 mg/dL; Potassium 3.6 mmol/L (3.5-5.1); Protein, Total 6.7 g/dL (6.4-8.2); Sodium Level 133 mmol/L (136-145); Thyroid Stim Hormone (TSH) 2.98 uIU/mL (0.358-3.74); Triglycerides 162 mg/dL; Very Low Density Lipoprotein 32 mg/dL (5-40)
== END | disposition home or self-care (01) ==
LOC: MFPLAB 08:14
PROVIDERS: PCP Family Medicine; Visit Provider Counselor Mental Health
DX: E55.9 Vitamin D deficiency, unspecified (principal); Z79.899 Other long term (current) drug therapy
CPT/HCPCS: 36415; 80053; 80061; 80164; 82140; 82306; 83036; 84443; 85027

== ENCOUNTER → 2024-05-09 | Outpatient (CLI) | payer MEDICARE, SELFPAY ==
[2024-05-09 17:40] LABS: Hematocrit 41.3 % (40-54); Hemoglobin 13.6 g/dL (13.0-16.5); Mean Corp Hgb Conc 32.9 g/dL (32-36); Mean Corpuscular Hgb 30.3 pg (27.0-32.0); Mean Platelet Vol. 9.7 fl (6.2-12.0); Platelet Count 219 K/mm3 (150-450); RBC Distribution Width CV 13.2 % (11.6-14.6); RBC Distribution Width SD 44.5 fl (35.1-43.9); Red Blood Count 4.49 M/mm3 (4.6-6.2); White Blood Count 9.2 K/mm3 (4.4-11.0)
[2024-05-09 18:00] LABS: Anion Gap 4 (5-15); BUN 14 mg/dL (7-18); BUN/Creat Ratio 12.1 RATIO (10-20); Calcium,Total 8.8 mg/dL (8.5-10.1); Chloride 103 mmol/L (98-107); Creatinine, Serum 1.16 mg/dL (0.70-1.30); EST Glomerular Filtration Rate 67 mL/min (>60); Est Glom Filt Rate - Afr Amer 80 mL/min (>60); Glucose 91 mg/dL (74-106); PSA,Total - Annual Screen 0.13 ng/mL (0.00-4.00); Potassium 3.1 mmol/L (3.5-5.1); Sodium Level 137 mmol/L (136-145)
== END | disposition home or self-care (01) ==
LOC: MTLAB 16:08
PROVIDERS: PCP Family Medicine; Referring Provider Urology; Visit Provider Urology
DX: Z01.812 Encounter for preprocedural laboratory examination (principal); Z12.5 Encounter for screening for malignant neoplasm of prostate
CPT/HCPCS: 36415; 80048; 84153; 85027; G0103

== ENCOUNTER → 2024-05-26 | Outpatient (CLI) | payer MEDICARE, SELFPAY ==
[2024-05-26 17:51] LABS: Anion Gap 5 (5-15); BUN 14 mg/dL (7-18); BUN/Creat Ratio 9.7 RATIO (10-20); Calcium,Total 8.4 mg/dL (8.5-10.1); Chloride 103 mmol/L (98-107); Creatinine, Serum 1.45 mg/dL (0.70-1.30); EST Glomerular Filtration Rate 51 mL/min (>60); Est Glom Filt Rate - Afr Amer 62 mL/min (>60); Glucose 147 mg/dL (74-106); Potassium 3.2 mmol/L (3.5-5.1); Sodium Level 137 mmol/L (136-145)
== END | disposition home or self-care (01) ==
LOC: MFPLAB 15:16
PROVIDERS: PCP Family Medicine; Visit Provider Family Medicine
DX: E87.6 Hypokalemia (principal)
CPT/HCPCS: 36415; 80048

== ENCOUNTER → 2024-05-29 | Outpatient (CLI) | payer MEDICARE, SELFPAY | END | disposition home or self-care (01) | PROVIDERS: PCP Family Medicine; Referring Provider Family Medicine; Visit Provider Family Medicine | DX: J15.9 Unspecified bacterial pneumonia (principal) | CPT/HCPCS: 71046 ==

== ENCOUNTER 2024-06-07 10:41 | Day surgery (SDC) | payer MEDICARE, SELFPAY ==
[2024-06-07] VITALS (11 sets, daily range): BP systolic 98–171; BP diastolic 72–98; PULSE 43–54; RESP 16–20; TEMP 36.2–36.9; O2SAT 92–96; BMI 38.9
[2024-06-07] MEDS: Lactated Ringers 1,000 ML 15 ML IV (11:33)
--- NOTE | 2024-06-07 11:39 | PCM.PRE.AN2 ---
ASA Classification* ASA Classification ASA Classification: 3 Assessment & Plan Anesthesia* Anesthesia Assessment Anesthesia Assessment: Discussed sedation and/or anesthesia options, risks, benefits, and alternatives with patient/parents/legal guardian/POA. Questions invited. The patient/parents/legal guardian/POA seems to understand and agrees to proceed with anesthesia plan. Reviewed the physical assessment, medical history, allergy history and patient home medications list prior to surgery/procedure/anesthetic and documented any changes. Performed airway and anesthesia risk assessments. Anesthesia Type Anesthesia Type: Spinal (patient req spinal if possible) Anesthesia Focused Assessment* Temperature: 97.7 F Pulse Rate: 53 Blood Pressure: 171/84 Respiratory Rate: 18 Pulse Ox: 95 Airway Assessment Mouth opens: >3 cm Mallampati Score: II Focused Labs Anesthesia Preop lab: CBC WBC 9.2 K/mm3 (4.4-11.0) 05/09/24 16:15 RBC 4.49 M/mm3 (4.6-6.2) L 05/09/24 16:15 Hgb 13.6 g/dL (13.0-16.5) 05/09/24 16:15 Hct 41.3 % (40-54) 05/09/24 16:15 Plt Count 219 K/mm3 (150-450) 05/09/24 16:15 CHEMISTRY Potassium 3.2 mmol/L (3.5-5.1) L 05/26/24 15:16 Sodium 137 mmol/L (136-145) 05/26/24 15:16 BUN 14 mg/dL (7-18) 05/26/24 15:16 Creatinine 1.45 mg/dL (0.70-1.30) H 05/26/24 15:16 Glucose 147 mg/dL (74-106) H 05/26/24 15:16 TSH 2.98 uIU/mL (0.358-3.74) 12/30/23 08:17 COAG Pre-Assessment Diagnosis/Proposed Procedure Planned Operative Procedure(s): CIRCUMCISION Anesthesia History Anesthesia History - bracelet form coverer: Anesthesia History - bracelet form coverer Hx Hospitalization No 06/02/24 12:56 Any Problems With Anesthesia No 06/02/24 12:56 Cholinesterase deficiency No 06/02/24 12:56 You/Your Family Experience No 06/02/24 12:56 fever (hyperthermia) with Relationship Recent Exposure to Contagious Yes: cold sx seen yesterday 06/07/24 11:10 Disease by pcp Does patient have nerve No 06/02/24 12:56 stimulator Patient instructed to have device shut off --Does patient have Pacemaker No 06/07/24 11:10 or ICD? When Was Last Pacemaker Check QUESTION #4 FULL TEXT: You/Your Family Experience fever (hyperthermia) with Anesthesia Last Oral Intake Last Oral intake: Last Oral Intake NPO since 10:00 06/07/24 11:10 Meds taken in AM with sips of Yes 06/07/24 11:10 water? Meds patient instructed to see medlist 06/07/24 11:10 take am of surgery PONV PONV - bracelet form coverer: PONV - bracelet form coverer Female No 06/02/24 12:56 HX of Motion Sickness No 06/02/24 12:56 HX of N/V After Surgery No 06/02/24 12:56 Non-Smoker Yes 06/02/24 12:56 Duration of Surgery greater No 06/02/24 12:56 than 60 minutes Number of Risk Factors 1 06/02/24 12:56 PONV Score Low Risk 06/02/24 12:56 Height & Weight Height & Weight: Anesthesia: Height & Weight Height 5 ft 10 in 06/07/24 11:10 Weight: 123 kg 06/07/24 11:10 Body Mass Index (BMI) 38.9 06/07/24 11:10 Respiratory Assessment Respiratory Assessment - bracelet form coverer: Respiratory Tract Infection Hx - bracelet form coverer Hx Respiratory Tract Infection Yes: CHEST COLD TREATED WITH 06/02/24 12:56 ANTIBIOTICS STOP Sleep Apnea STOP Sleep Apnea - bracelet form coverer: STOP Sleep Apnea - bracelet form coverer Hx Hypertension Yes: CONTROLLED WITH MED 06/02/24 12:56 Hx Sleep Apnea Yes 06/02/24 12:56 CPAP Yes 06/02/24 12:56 BIPAP No 06/02/24 12:56 Do you snore loudly (louder than talking or can be heard Do you often feel tired/ fatigued/ sleepy during daytime? Has anyone observed you stop breathing during sleep? STOP Results Positive 06/02/24 12:56 QUESTION #5 FULL TEXT : Do you snore loudly (louder than talking or can be heard through closed doors)? Tobacco Use History Tobacco Use History - bracelet form coverer: Tobacco Use History - bracelet form coverer Tobacco Use Smoking Status Former smoker 06/02/24 12:56 Hx Tobacco Use No 06/02/24 12:56 Years Smoking Packs Smoked per Day Smoking Cessation Date was No - quit smoking greater 06/02/24 12:56 within the last 15 years than 15 years ago Hx Smoking Cessation Date 12/17/00 06/02/24 12:56 Hx Smoking Cessation Counseling Hematologic Medial History Hematologic Hx - bracelet form coverer: Hematologic Medical Hx - orthopedic nurse practitioner Hx of Blood Transfusion No 06/02/24 12:56 Hx of Transfusion in last 3 No 06/02/24 12:56 Months Date of Last Transfusion (if within last 3 months) Ever experience any problems No 06/02/24 12:56 with transfusion(s)? Specify any problems Hx of Preganancy in last 3 N/A 06/02/24 12:56 Months Nurse Filling Out Transfusion DSCHRIBER 06/02/24 12:56 & Questions: Date: 06/02/24 06/02/24 12:56 Time: 12:58 06/02/24 12:56 Patient unable to answer at this time (ie. confused, unrespo /Reproduction History /Reproductive History - bracelet form coverer: /Reproductive Hx- bracelet form coverer Hx Now No 06/02/24 12:56 Gestational Age (in weeks): EDC: Hx Hx Para Hx Section SAB No 06/02/24 12:56 Active Medications Active Medications: Current Medications Generic Name Dose Route Start Last Admin Trade Name Freq PRN Reason Stop Dose Admin Cefazolin Sodium 2 gm/ N/A 20 mls @ 400 mls/hr 06/07/24 13:00 IV 06/07/24 13:02 PREOP ONE Lactated Ringer's 1,000 mls @ 15 mls/hr 06/07/24 11:45 06/07/24 11:33 IV 06/13/24 01:04 15 mls/hr .Q48H SANDRA Administration Protocol PFSH Medical History Loss of hearing Wears glasses Schizophrenia Bipolar disorder Alcohol use Discoloration of skin Fatty liver Back pain Dietary restriction Difficulty swallowing Former smoker CPAP (continuous positive airway pressure) dependence Shortness of breath on exertion COPD (chronic obstructive pulmonary disease) Leg cramps History of pain when walking History of stress test Depression Diabetes GERD (gastroesophageal reflux disease) Hypertension Hyperlipemia Home Medications ?Medication ?Instructions ?Recorded ?Last Taken ?Type amlodipine 10 mg tablet 10 mg PO DAILY 09/30/14 06/07/24 History aspirin 81 mg tablet,delayed 81 mg PO DAILY@0800 09/30/14 06/02/24 History release fenofibrate nanocrystallized 145 145 mg PO DAILY 09/30/14 Unknown History mg tablet sertraline 100 mg tablet 200 mg PO DAILY 09/30/14 Unknown History spironolactone 50 mg tablet 25 mg PO DAILY 09/30/14 Unknown History benztropine 0.5 mg tablet 0.5 mg PO BID 01/11/21 06/07/24 History lisinopril 40 mg tablet 40 mg PO DAILY 01/11/21 Unknown History lovastatin 20 mg tablet,extended 20 mg PO DAILY 01/11/21 Unknown History release 24 hr omeprazole 40 mg capsule,delayed 40 mg PO DAILY 01/11/21 06/07/24 History release albuterol sulfate 90 mcg/actuation 1 inh inhalation PRN PRN shortness 06/02/24 Unknown History aerosol inhaler of breath or wheezing aripiprazole 30 mg tablet 30 mg PO DAILY 06/02/24 Unknown History divalproex 500 mg tablet,extended 500 mg PO QHS 06/02/24 Unknown History release 24 hr haloperidol 5 mg tablet 5 mg PO DAILY 06/02/24 06/07/24 History haloperidol 5 mg tablet 10 mg PO QHS 06/02/24 Unknown History metformin 500 mg tablet 1,000 mg PO DAILY 06/02/24 Unknown History metoprolol tartrate 50 mg tablet 25 mg PO BID 06/02/24 06/07/24 History (Lopressor) nystatin 100,000 unit/gram topical 1 applic topical TID 06/02/24 Unknown History ointment potassium chloride 10 mEq 10 meq PO DAILY 06/02/24 Unknown History tablet,extended release trazodone 50 mg tablet 100 mg PO QHS PRN PRN insomnia 06/02/24 Unknown History Allergy/AdvReac Type Severity Reaction Status Date / Time lithium Allergy URINARY Verified 06/07/24 11:04 RETENTION levofloxacin (From Levaquin) AdvReac Pain in Verified 06/07/24 11:04 joints Surgical History Hx of right cataract extraction Hx of left cataract extraction History of esophagogastroduodenoscopy (EGD) Hx of colonoscopy History of surgery Hx of circumcision History of carpal tunnel surgery of right wrist History of carpal tunnel surgery of left wrist Social History Smoking Status: Former smoker Review of Systems (Anesthesia) ROS Narrative System reviewed and no additional complaints, except as documented.
[2024-06-07 11:53] LABS: Bedside Glucose 150 mg/dL (74-106)
--- NOTE | 2024-06-07 12:42 | PCM.HP.STD ---
HPI - General General Date of Service: 06/07/24 Chief Complaint: Phimosis HPI Narrative MAYCO SWIFT, is a 68 M who presents for a circumcision of the penis. REPLACED BY [facility] Medical History Loss of hearing Wears glasses Schizophrenia Bipolar disorder Alcohol use Discoloration of skin Fatty liver Back pain Dietary restriction Difficulty swallowing Former smoker CPAP (continuous positive airway pressure) dependence Shortness of breath on exertion COPD (chronic obstructive pulmonary disease) Leg cramps History of pain when walking History of stress test Depression Diabetes GERD (gastroesophageal reflux disease) Hypertension Hyperlipemia Home Medications ?Medication ?Instructions ?Recorded ?Last Taken ?Type amlodipine 10 mg tablet 10 mg PO DAILY 09/30/14 06/07/24 History aspirin 81 mg tablet,delayed 81 mg PO DAILY@0800 09/30/14 06/02/24 History release fenofibrate nanocrystallized 145 145 mg PO DAILY 09/30/14 Unknown History mg tablet sertraline 100 mg tablet 200 mg PO DAILY 09/30/14 Unknown History spironolactone 50 mg tablet 25 mg PO DAILY 09/30/14 Unknown History benztropine 0.5 mg tablet 0.5 mg PO BID 01/11/21 06/07/24 History lisinopril 40 mg tablet 40 mg PO DAILY 01/11/21 Unknown History lovastatin 20 mg tablet,extended 20 mg PO DAILY 01/11/21 Unknown History release 24 hr omeprazole 40 mg capsule,delayed 40 mg PO DAILY 01/11/21 06/07/24 History release albuterol sulfate 90 mcg/actuation 1 inh inhalation PRN PRN shortness 06/02/24 Unknown History aerosol inhaler of breath or wheezing aripiprazole 30 mg tablet 30 mg PO DAILY 06/02/24 Unknown History divalproex 500 mg tablet,extended 500 mg PO QHS 06/02/24 Unknown History release 24 hr haloperidol 5 mg tablet 5 mg PO DAILY 06/02/24 06/07/24 History haloperidol 5 mg tablet 10 mg PO QHS 06/02/24 Unknown History metformin 500 mg tablet 1,000 mg PO DAILY 06/02/24 Unknown History metoprolol tartrate 50 mg tablet 25 mg PO BID 06/02/24 06/07/24 History (Lopressor) nystatin 100,000 unit/gram topical 1 applic topical TID 06/02/24 Unknown History ointment potassium chloride 10 mEq 10 meq PO DAILY 06/02/24 Unknown History tablet,extended release trazodone 50 mg tablet 100 mg PO QHS PRN PRN insomnia 06/02/24 Unknown History Allergy/AdvReac Type Severity Reaction Status Date / Time lithium Allergy URINARY Verified 06/07/24 11:04 RETENTION levofloxacin (From Levaquin) AdvReac Pain in Verified 06/07/24 11:04 joints Surgical History Hx of right cataract extraction Hx of left cataract extraction History of esophagogastroduodenoscopy (EGD) Hx of colonoscopy History of surgery Hx of circumcision History of carpal tunnel surgery of right wrist History of carpal tunnel surgery of left wrist Social History Smoking Status: Former smoker Vital Signs Vital Signs Vital Signs: 06/07/24 11:10 06/07/24 11:10 06/07/24 11:41 Temperature 97.7 F L 97.7 F L Temperature Source Temporal Pulse Rate 53 L 53 L Respiratory Rate 18 18 Respiratory Pattern Normal Blood Pressure 171/84 H 171/84 H Blood Pressure Mean 113 Blood Pressure Source Monitor Blood Pressure Position Semi-Fowlers Blood Pressure Location Left Arm Pulse Ox 95 95 Oxygen Delivery Method Room Air Weight Weight: 123 kg Body Mass Index (BMI) 38.9 Results Lab / Micro Data Labs: Laboratory Results - last 24 hr 06/07/24 11:30: POC Glucose 150 H
[2024-06-07] MEDS: Bupivacaine Mpf 0.5% 30 ML VIAL (12:49)
[2024-06-07] MEDS: Cefazolin 2 GM in Syringe IV (13:16)
--- NOTE | 2024-06-07 13:24 | PCM.DC ---
Discharge Instructions Diet Discharge Diet: No restrictions, Light diet - advance as tolerated and Soft diet Activity Discharge Activity: Return to Normal Activity and May Shower Additional Activity Instructions:: do not soak incision Follow Up Care Test Results: Test results from this visit will be discussed in further detail at your follow-up appointment, if applicable. Discharge Plan Admission Primary Reason for Your Visit: circumcision Attending Provider: Alphonso Baldwin Primary Care Provider: José Stein Instructions Print Language: Ukrainian Discharge Orders/Prescriptions Prescriptions: New cephalexin 500 mg capsule 500 mg PO TID Qty: 15 0RF oxycodone 5 mg tablet 5 mg PO Q6H PRN (Reason: pain) 7 Days Qty: 14 0RF Continued sertraline 100 MG tablet 200 mg PO DAILY aspirin 81 MG tablet 81 mg PO DAILY@0800 amlodipine 10 MG tablet 10 mg PO DAILY spironolactone 50 MG tablet 25 mg PO DAILY fenofibrate nanocrystallized 145 MG tablet 145 mg PO DAILY benztropine 0.5 mg tablet 0.5 mg PO BID Patient Comments: TAKE 1 TABLET BY MOUTH TWICE A DAY omeprazole 40 mg Capsule,Delayed Release(Dr/Ec) 40 mg PO DAILY lisinopril 40 mg Tablet 40 mg PO DAILY lovastatin 20 mg Tablet Extended Release 24 Hr 20 mg PO DAILY aripiprazole 30 mg tablet 30 mg PO DAILY potassium chloride 10 mEq tablet extended release 10 meq PO DAILY albuterol sulfate 90 mcg/actuation HFA aerosol inhaler 1 inh inhalation PRN PRN (Reason: shortness of breath or wheezing) nystatin 100,000 unit/gram ointment 1 applic topical TID divalproex 500 mg tablet extended release 24 hr 500 mg PO QHS haloperidol 5 mg tablet 5 mg PO DAILY metoprolol tartrate [Lopressor] 50 mg tablet 25 mg PO BID trazodone 50 mg tablet 100 mg PO QHS PRN PRN (Reason: insomnia) haloperidol 5 mg tablet 10 mg PO QHS metformin 500 mg tablet 1,000 mg PO DAILY Referrals / Follow Up: Alphonso Baldwin MD [Med Staff - Active Staff] - José Stein MD [Primary Care Provider] - Disposition Disposition (needs filled in before D/C Order can be placed): Home, Self Care
--- NOTE | 2024-06-07 14:03 | OP.PCM_ITS ---
Operative Report (Standard) Operative Information Surgery/Procedure Performed: Circumcision Surgeon: Alphonso Baldwin Date of Procedure: 06/07/24 Procedure Start Time: 13:45 Procedure Stop Time: 14:04 Pre-Operative Diagnosis: Recurrent phimosis of the foreskin Post-Operative Diagnosis: The same Select all DRAINS/GRAFTS/IMPLANTS that apply: None Type of Anesthesia: Spinal Estimated Blood Loss: 2 cc Specimen collected: No Description of surgery: Patient was taken back to the operating room after induction of anesthesia with a spinal and some sedation he was placed supine the penis was shaved prepped and draped in usual fashion he had significant phimosis of the foreskin coming over the top of the glans of the penis I then marked my incision all the way around to excise the phimotic and chronically edematous foreskin. I did a circumcision circumferential incision all the way around I then dissected down to the penis I then dissected the foreskin off the glans circumferentially until we got nice healthy tissue about the glans side and the penile shaft side I then reapproximated the scrotal skin and the skin to the penis circumferentially with interrupted stitches and a running stitch. Fluffs and dressings were placed anesthetic was reversed taken back to the PACU in good condition he will follow- up in 2 weeks for checkup. Surgical Findings: Chronically phimotic and edematous foreskin Delicatessen Manager ordained minister: No Complications Complications: No Admit VTE Documentation VTE Present on Admission: No VTE Mechan Device Prophylaxis: SCD's VTE Pharm Prophylaxis ordered?: No
--- NOTE | 2024-06-07 14:17 | PCM.POST.ANE ---
Anesthesia: Postop Eval I Current Vital Signs Temperature: 98.4 F Pulse Rate: 44 Blood Pressure: 112/87 Respiratory Rate: 20 Pulse Ox: 93 Assessment Airway patent: Yes Spontaneous unlabored respirations: Yes nausea: No Vomiting: No Anesthesia Complication: No Fluid Hydration Crystalloid volume administer (ml): 600 Total IV fluid infused: 600 Progress Note Anesthesia document: Postop Eval 1 completed: Yes
[2024-06-07 15:26] LABS: Bedside Glucose 114 mg/dL (74-106)
--- NOTE | 2024-06-07 16:14 | POSTOPAN2_ITS ---
Anesthesia Postop Eval I Sum Postop Eval Completion status Anesthesia document: Postop Eval 1 completed: Yes Anesthesia Postop Eval I Summary Anesthesia Postop Eval I Summary: Anesthesia Postop Eval I: Assessment Summary Airway patent Yes 06/07/24 14:17 ENVIRONMENTAL AUDITOR.[email or web address] Spontaneous unlabored Yes 06/07/24 14:17 ENVIRONMENTAL AUDITOR.CSIR respirations Mental status nausea No 06/07/24 14:17 ENVIRONMENTAL AUDITOR.CSIR Vomiting No 06/07/24 14:17 ENVIRONMENTAL AUDITOR.CSIR Anesthesia Postop Eval I: Fluid Summary Crystalloid volume administer 600 06/07/24 14:17 ENVIRONMENTAL AUDITOR.CSIR (ml) Colloids volume administered ( ml) Blood Product volume administered (ml) Total IV fluid infused 600 06/07/24 14:17 ENVIRONMENTAL AUDITOR.CSIR Anesthesia Postop Eval I: Summary Notes Anesthesia Complication No 06/07/24 14:17 ENVIRONMENTAL AUDITOR.CSIR Anesthesia Complication Comment: Post-operative progress note Anesthesia: Postop Eval II Evaluation Mental status: Awake and Calm Pain Level: 1 nausea: No Vomiting: No Complications Anesthesia Complication: No
--- NOTE | 2024-06-07 16:14 | PCM.POSTANE2 ---
Anesthesia Postop Eval I Sum Postop Eval Completion status Anesthesia document: Postop Eval 1 completed: Yes Anesthesia Postop Eval I Summary Anesthesia Postop Eval I Summary: Anesthesia Postop Eval I: Assessment Summary Airway patent Yes 06/07/24 14:17 BIN [email or web address] Spontaneous unlabored Yes 06/07/24 14:17 BIN WORKER.CSIR respirations Mental status nausea No 06/07/24 14:17 BIN WORKER.CSIR Vomiting No 06/07/24 14:17 BIN [email or web address].CSIR Anesthesia Postop Eval I: Fluid Summary Crystalloid volume administer 600 06/07/24 14:17 BIN WORKER.CSIR (ml) Colloids volume administered ( ml) Blood Product volume administered (ml) Total IV fluid infused 600 06/07/24 14:17 BIN [email or web address].CSIR Anesthesia Postop Eval I: Summary Notes Anesthesia Complication No 06/07/24 14:17 BIN WORKER.CSIR Anesthesia Complication Comment: Post-operative progress note Anesthesia: Postop Eval II Evaluation Mental status: Awake and Calm Pain Level: 1 nausea: No Vomiting: No Complications Anesthesia Complication: No
--- NOTE | 2024-06-08 | FOR_PTH ---
PATIENT: MAYCO SWIFT LOC: [facility] U#:[id number] AGE/SX: 68/M ROOM: RE06/07/[address]: Dr. Alphonso Baldwin MD : 1955 BED: DIS: 06/07/2024 SPEC #: [id number] RECD: 06/08/24 10:16 STATUS: CHARLES ORONA #: [id number] ABHINAV: 06/08/24 00:[address]: Alphonso Baldwin DEPT: SURGICAL PATHOLOGY RECD BY: Madhu Hope ENTERED: 06/08/24 10:16 SP TYPE: FORESKIN OTHR DR: Dr. José Stein MD Tissues: Skin of foreskin, NOS Procedures: Surgery Specimen Level III HEADER OPERATION: Circumcision PRE-OP DIAGNOSIS: Phimosis TISSUE SUBMITTED: Penis foreskin MICROSCOPIC DIAGNOSIS Penile foreskin, excision: Consistent with Balanitis xerotica obliterans. Acanthosis and hyperkeratosis. SJ. 06/09/2024 MICROSCOPIC DESCRIPTION Slides are reviewed. GROSS DESCRIPTION Received in fixative is one container labeled with the patient's name and designated Penis foreskin. The specimen consists of an irregular piece of de anda wrinkled skin measuring 5.5 x 2.0 x 1.0cm. Skin surface shows focal area of thickening. No mass lesion is identified. Tissue Recovery Technician sections are submitted in two cassettes. 06/08/2024 TC:5 CPT:43386
== END 2024-06-07 17:44 | disposition home or self-care (01) ==
LOC: SDC 10:43 → AC 10:48
PROVIDERS: PCP Family Medicine; Referring Provider Urology; Visit Provider Urology
PROC: (CPT 54161; principal; 2024-06-07 12:50)
DX: N47.1 Phimosis (principal); F20.9 Schizophrenia, unspecified; F31.9 Bipolar disorder, unspecified; J44.9 Chronic obstructive pulmonary disease, unspecified; E11.9 Type 2 diabetes mellitus without complications; Z79.84 Long term (current) use of oral hypoglycemic drugs; Z87.891 Personal history of nicotine dependence; E78.5 Hyperlipidemia, unspecified; I10 Essential (primary) hypertension; Z79.82 Long term (current) use of aspirin; Z99.89 Dependence on other enabling machines and devices; K21.9 Gastro-esophageal reflux disease without esophagitis
CPT/HCPCS: 54161; 00920; 82962; 88304; J7120; J2405

== ENCOUNTER 2024-06-08 16:19 | Emergency (ER) | payer MEDICARE, SELFPAY ==
[2024-06-08 16:19] VITALS: BP 167/79; PULSE 56; RESP 16; TEMP 37.1; O2SAT 98; BMI 39.4
--- NOTE | 2024-06-08 16:40 | EX.ED.GUMALE ---
HPI History of Present Illness Chief Complaint: Male Pain/Injury Detail of Chief Complaint: Postop bleeding Informant: patient Narrative Narrative: Patient presents to the emergency department with bleeding from his circumcision site. Patient states that he had a circumcision performed by Dr. Barber yesterday. Today he went to the mailbox and upon doing so felt like maybe his penis rubbed against his pants and he started to bleed. He is not on blood thinners. He called Dr. Pro chamorro's office and was told to come in. He understood that he needed come to the emergency department but after discussing with Dr. Pro chamorro he was told to come to his office. [facility] Medical History (Updated 06/08/24 @ 17:18 by Eva Nagel) Male circumcision Loss of hearing Wears glasses Schizophrenia Bipolar disorder Alcohol use Discoloration of skin Fatty liver Back pain Dietary restriction Difficulty swallowing Former smoker CPAP (continuous positive airway pressure) dependence Shortness of breath on exertion COPD (chronic obstructive pulmonary disease) Leg cramps History of pain when walking History of stress test Depression Diabetes GERD (gastroesophageal reflux disease) Hypertension Hyperlipemia Home Medications ?Medication ?Instructions ?Recorded ?Last Taken ?Type amlodipine 10 mg tablet 10 mg PO DAILY 09/30/14 06/07/24 History aspirin 81 mg tablet,delayed 81 mg PO DAILY@0800 09/30/14 06/02/24 History release fenofibrate nanocrystallized 145 145 mg PO DAILY 09/30/14 Unknown History mg tablet sertraline 100 mg tablet 200 mg PO DAILY 09/30/14 Unknown History spironolactone 50 mg tablet 25 mg PO DAILY 09/30/14 Unknown History benztropine 0.5 mg tablet 0.5 mg PO BID 01/11/21 06/07/24 History lisinopril 40 mg tablet 40 mg PO DAILY 01/11/21 Unknown History lovastatin 20 mg tablet,extended 20 mg PO DAILY 01/11/21 Unknown History release 24 hr omeprazole 40 mg capsule,delayed 40 mg PO DAILY 01/11/21 06/07/24 History release albuterol sulfate 90 mcg/actuation 1 inh inhalation PRN PRN shortness 06/02/24 Unknown History aerosol inhaler of breath or wheezing aripiprazole 30 mg tablet 30 mg PO DAILY 06/02/24 Unknown History divalproex 500 mg tablet,extended 500 mg PO QHS 06/02/24 Unknown History release 24 hr haloperidol 5 mg tablet 5 mg PO DAILY 06/02/24 06/07/24 History haloperidol 5 mg tablet 10 mg PO QHS 06/02/24 Unknown History metformin 500 mg tablet 1,000 mg PO DAILY 06/02/24 Unknown History metoprolol tartrate 50 mg tablet 25 mg PO BID 06/02/24 06/07/24 History (Lopressor) nystatin 100,000 unit/gram topical 1 applic topical TID 06/02/24 Unknown History ointment potassium chloride 10 mEq 10 meq PO DAILY 06/02/24 Unknown History tablet,extended release trazodone 50 mg tablet 100 mg PO QHS PRN PRN insomnia 06/02/24 Unknown History cephalexin 500 mg capsule 500 mg PO TID #15 caps 06/07/24 Unknown Rx oxycodone 5 mg tablet 5 mg PO Q6H PRN pain 7 days #14 06/07/24 Unknown Rx tabs Allergy/AdvReac Type Severity Reaction Status Date / Time lithium Allergy URINARY Verified 06/08/24 16:19 RETENTION levofloxacin (From Levaquin) AdvReac Pain in Verified 06/08/24 16:19 joints Surgical History Hx of right cataract extraction Hx of left cataract extraction History of esophagogastroduodenoscopy (EGD) Hx of colonoscopy History of surgery Hx of circumcision History of carpal tunnel surgery of right wrist History of carpal tunnel surgery of left wrist Social History Smoking Status: Former smoker ROS ROS ED Review of Systems ROS Unobtainable: other Constitutional Constitutional ED: Reports lethargy; Denies chills, fever(s), sweats or weight loss Eyes Eyes: Denies blurry vision, change in vision or diplopia ENT ENT ED: Denies rhinorrhea or sore throat Cardiovascular Cardiovascular: Denies chest pain, orthopnea or racing heartbeat Respiratory/Chest Respiratory/Chest: Denies cough, dyspnea, dyspnea on exertion, orthopnea or sputum Gastrointestinal Gastrointestinal: Denies abdominal pain, diarrhea, nausea or vomiting Genitourinary Genitourinary ED: Reports other Details: Postop bleeding from circumcision site ; Denies dysuria, hematuria or urinary frequency Musculoskeletal Musculoskeletal: Denies arthralgias, back pain, myalgias or neck pain Integumentary Denies abscess, Abrasions or rash Neurologic Neurologic: Denies headache(s) or weakness Psychiatric Psychiatric: Denies anxiety, depression or suicidal thoughts Endocrine Endocrinology: Denies polydipsia, polyphagia or polyuria Hematologic/Lymphatic Hematologic/Lymphatic: Denies easy bleeding, easy bruising or lymphadenopathy Allergic/Immunologic Allergic/Immunologic ED: Denies mouth swelling, tongue swelling or urticaria EXAM Physical Exam Const Vital Signs: 06/08/24 16:19 06/08/24 18:41 Temperature 98.8 F 98.8 F Temperature Source Temporal Pulse Rate 56 L 56 L Respiratory Rate 16 16 Blood Pressure 167/79 H 167/79 H Blood Pressure Mean 108 108 Pulse Ox 98 98 Oxygen Delivery Method Room Air Positive well nourished and well developed General Appearance ED: well developed and NAD HEENT Reports TM's clear and moist mucous membranes normocephalic and atraumatic; Negative for trauma or tenderness Tympanic Membrane ED: Yes TM's clear Eyes PERRL and EOMs intact bilaterally General Eye ED: Negative for pale conjunctiva or scleral icterus Neck no lymphadenopathy, supple and no JVD General: Negative for tenderness Chest Wall inspection of chest normal and palpation of chest normal Chest: Negative for tenderness Resp normal respiratory effort and clear to auscultation bilaterally Effort and Inspection: Negative for respiratory distress or pain with movement Auscultation: Negative for rhonchi, wheezes or diminished lung sounds Cardio regular rate, regular rhythm, S1 normal heart sound, S2 normal heart sound and no murmurs Peripheral Pulses: pulses 2+ throughout GI normal to inspection, nondistended, normoactive bowel sounds, soft to palpation, non-tender, non-distended and no masses Narrative: Recently circumcised male noted with recent fresh bleeding noted from suture site specially the inferior right side. No significant active bleeding currently. Back/Spine no CVA tenderness and no thoracic nor lumbar tenderness Extremity normal to inspection General Extremety ED: Negative for edema General Extremity: Negative for edema Neuro oriented x3, CN's II-XII intact bilaterally, no sensory deficits noted and gait normal Sensorium / Orientation: awake, alert, oriented to person, oriented to place and oriented to time Motor Exam: strength 5/5 throughout and strength abnormal Psych mental status grossly normal Skin no rashes or lesions noted and no wounds MDM MDM MDM Narrative Medical decision making narrative: Patient presents with postop bleeding from circumcision. Not on blood thinners. Clinically looks well. Discussed case with urology Dr. Baldwin who will present to the emergency department to evaluate patient and will make final disposition. Discharge Plan Triage Chief Complaint: Male Pain/Injury ED Provider: Estee Hinkle Dx/Rx/DC Orders Clinical Impression: Post-op bleeding Instructions: ED Post Op Wound Check, Bleeding Prescriptions: No Action sertraline 100 MG tablet 200 mg PO DAILY aspirin 81 MG tablet 81 mg PO DAILY@0800 amlodipine 10 MG tablet 10 mg PO DAILY spironolactone 50 MG tablet 25 mg PO DAILY fenofibrate nanocrystallized 145 MG tablet 145 mg PO DAILY benztropine 0.5 mg tablet 0.5 mg PO BID Patient Comments: TAKE 1 TABLET BY MOUTH TWICE A DAY omeprazole 40 mg Capsule,Delayed Release(Dr/Ec) 40 mg PO DAILY lisinopril 40 mg Tablet 40 mg PO DAILY lovastatin 20 mg Tablet Extended Release 24 Hr 20 mg PO DAILY aripiprazole 30 mg tablet 30 mg PO DAILY potassium chloride 10 mEq tablet extended release 10 meq PO DAILY albuterol sulfate 90 mcg/actuation HFA aerosol inhaler 1 inh inhalation PRN PRN (Reason: shortness of breath or wheezing) nystatin 100,000 unit/gram ointment 1 applic topical TID divalproex 500 mg tablet extended release 24 hr 500 mg PO QHS haloperidol 5 mg tablet 5 mg PO DAILY metoprolol tartrate [Lopressor] 50 mg tablet 25 mg PO BID trazodone 50 mg tablet 100 mg PO QHS PRN PRN (Reason: insomnia) haloperidol 5 mg tablet 10 mg PO QHS metformin 500 mg tablet 1,000 mg PO DAILY cephalexin 500 mg capsule 500 mg PO TID Qty: 15 0RF oxycodone 5 mg tablet 5 mg PO Q6H PRN (Reason: pain) 7 Days Qty: 14 0RF Primary Care Provider: José Stein Referrals: Alphonso Baldwin MD [Med Staff - Active Staff] - As Needed José Stein MD [Primary Care Provider] - Print Language: German Disposition Disposition: Home, Self Care Discharge Date/Time: 06/08/24 18:42
[2024-06-08 18:41] VITALS: BP 167/79; PULSE 56; RESP 16; TEMP 37.1; O2SAT 98
== END 2024-06-08 18:42 | disposition home or self-care (01) ==
PROVIDERS: Emergency Provider Emergency Medicine; PCP Family Medicine; Visit Provider Emergency Medicine
DX: N99.820 Postprocedural hemorrhage of a genitourinary system organ or structure following a genitourinary system procedure (principal); J44.9 Chronic obstructive pulmonary disease, unspecified; E11.9 Type 2 diabetes mellitus without complications; Z87.891 Personal history of nicotine dependence; I10 Essential (primary) hypertension; E78.5 Hyperlipidemia, unspecified; Z79.899 Other long term (current) drug therapy; Z79.82 Long term (current) use of aspirin; F32.A Depression, unspecified; K21.9 Gastro-esophageal reflux disease without esophagitis; Z79.84 Long term (current) use of oral hypoglycemic drugs; Z98.41 Cataract extraction status, right eye; Z98.42 Cataract extraction status, left eye
CPT/HCPCS: 99282

== ENCOUNTER → 2024-07-24 | Outpatient (CLI) | payer MEDICARE, SELFPAY ==
[2024-07-24 13:11] LABS: Anion Gap 1 (5-15); BUN 17 mg/dL (7-18); BUN/Creat Ratio 16.5 RATIO (10-20); Chloride 103 mmol/L (98-107); Cholesterol 111 mg/dL (200); Creatinine, Serum 1.03 mg/dL (0.70-1.30); EST Glomerular Filtration Rate 76 mL/min (>60); Est Glom Filt Rate - Afr Amer 92 mL/min (>60); Glucose 147 mg/dL (74-106); High Density Lipoprotein 39 mg/dL; Potassium 3.7 mmol/L (3.5-5.1); Sodium Level 137 mmol/L (136-145); Triglycerides 154 mg/dL; Very Low Density Lipoprotein 31 mg/dL (5-40)
== END | disposition home or self-care (01) ==
LOC: LAB 11:03
PROVIDERS: PCP Family Medicine; Referring Provider Family Medicine; Visit Provider Family Medicine
DX: E11.59 Type 2 diabetes mellitus with other circulatory complications (principal)
CPT/HCPCS: 36415; 80048; 80061

== ENCOUNTER → 2024-08-21 | Outpatient (CLI) | payer MEDICARE, SELFPAY ==
[2024-08-21 18:00] LABS: Hematocrit 39.6 % (40-54); Hemoglobin 13.6 g/dL (13.0-16.5); Mean Corp Hgb Conc 34.3 g/dL (32-36); Mean Corpuscular Hgb 30.7 pg (27.0-32.0); Mean Corpuscular Volume 89.4 fL (80-94); Platelet Count 223 K/mm3 (150-450); RBC Distribution Width CV 12.8 % (11.6-14.6); RBC Distribution Width SD 41.9 fl (35.1-43.9); Red Blood Count 4.43 M/mm3 (4.6-6.2); White Blood Count 6.8 K/mm3 (4.4-11.0)
[2024-08-21 18:14] LABS: Anion Gap 7 (5-15); BUN 13 mg/dL (7-18); BUN/Creat Ratio 12.4 RATIO (10-20); Calcium,Total 8.6 mg/dL (8.5-10.1); Chloride 102 mmol/L (98-107); Creatinine, Serum 1.05 mg/dL (0.70-1.30); EST Glomerular Filtration Rate 75 mL/min (>60); Est Glom Filt Rate - Afr Amer 90 mL/min (>60); Glucose 158 mg/dL (74-106); Potassium 3.1 mmol/L (3.5-5.1); Sodium Level 138 mmol/L (136-145)
[2024-08-21 18:19] LABS: Hemoglobin A1c 5.1 % (3.8-5.6)
[2024-08-23 05:06] LABS: Prealbumin 24 mg/dL (10-36)
== END | disposition home or self-care (01) ==
PROVIDERS: PCP Family Medicine; Visit Provider Surgery Plastic and Reconstructive Surgery
DX: Z01.818 Encounter for other preprocedural examination (principal); F31.9 Bipolar disorder, unspecified; E11.9 Type 2 diabetes mellitus without complications; N47.1 Phimosis
CPT/HCPCS: 36415; 80048; 83036; 84134; 85027

== ENCOUNTER 2024-10-13 11:54 | Outpatient (CLI) | payer MEDICARE, SELFPAY ==
[2024-10-13 15:24] LABS: Absolute Lymphocyte Count 1.65 X10^3/uL (0.83-4.51); Absolute Neutrophil Count 3.4 X10^3/uL (2.0-7.7); Basophil# 0.05 X10^3/uL; Basophil% 0.9 % (0-1); Eosinophil# 0.29 X10^3/uL; Eosinophils% 5.1 % (0-5); Hematocrit 40.3 % (40-54); Hemoglobin 13.9 g/dL (13.0-16.5); Lymphocyte # 1.65 X10^3/ul (0.83-4.51); Lymphocyte % 28.7 % (19-41); Mean Corp Hgb Conc 34.5 g/dL (32-36); Mean Corpuscular Hgb 30.8 pg (27.0-32.0); Mean Corpuscular Volume 89.2 fL (80-94); Mean Platelet Vol. 10.1 fl (6.2-12.0); Monocyte# 0.37 X10^3/uL; Monocyte% 6.4 % (0-10); NRBC Flagged by Analyzer 0 % (0-5); Neutrophil # 3.36 X10^3/uL (2.7-7.7); Neutrophil % 58.6 % (47-70); Platelet Count 223 K/mm3 (150-450); RBC Distribution Width CV 13.2 % (11.6-14.6); RBC Distribution Width SD 42.9 fl (35.1-43.9); Red Blood Count 4.52 M/mm3 (4.6-6.2); White Blood Count 5.7 K/mm3 (4.4-11.0)
[2024-10-13 19:19] LABS: Anion Gap 12 (5-15); BUN 14 mg/dL (4-19); Carbon Dioxide 26.4 mmol/L (21.0-32.0); Chloride 100 mmol/L (98-108); Cholesterol 141 mg/dL (<=200); Creatinine, Serum 1.05 mg/dL (0.70-1.20); EST Glomerular Filtration Rate 77 (>60); Glucose 140 mg/dL (70-99); High Density Lipoprotein 36 mg/dL; Low Density Lipoprotein Calc. 65 mg/dL; Potassium 3.9 mmol/L (3.3-5.1); Sodium Level 138 mmol/L (133-145); Triglycerides 199 mg/dL; Very Low Density Lipoprotein 40 mg/dL (5-40); cholesterol:hdl ratio screen 3.93
== END 2024-10-13 23:59 | disposition home or self-care (01) ==
LOC: MFPLAB 11:55
PROVIDERS: PCP Family Medicine; Referring Provider Family Medicine; Visit Provider Family Medicine
DX: Z01.818 Encounter for other preprocedural examination (principal)
CPT/HCPCS: 36415; 80048; 80061; 85025

== ENCOUNTER → 2024-10-27 | Outpatient (CLI) | payer MEDICARE, SELFPAY ==
--- NOTE | 2024-10-27 10:50 | RAD_ITS ---
EXAM: XR Chest, 2 Views CLINICAL INDICATION: COUGH TECHNIQUE: Frontal and lateral views of the chest. COMPARISON: No relevant prior studies available. FINDINGS: LUNGS AND PLEURAL SPACES: Unremarkable. No consolidation. No pneumothorax. HEART: Unremarkable. No cardiomegaly. MEDIASTINUM: Unremarkable. Normal mediastinal contour. BONES/JOINTS: Unremarkable. No acute fracture. RAD/Chest PA and Lateral IMPRESSION: No acute cardiopulmonary process. Reading Location: [facility]
== END | disposition home or self-care (01) ==
LOC: MTRAD 10:49
PROVIDERS: PCP Family Medicine
DX: R05.9 Cough, unspecified (principal)
CPT/HCPCS: 71046

== ENCOUNTER → 2024-11-20 | Outpatient (CLI) | payer MEDICARE, SELFPAY ==
[2024-11-20 14:02] LABS: Ferritin 219 ng/mL (37-417); Vitamin B12 290 pg/mL (180-914)
== END | disposition home or self-care (01) ==
LOC: VSLAB 11:17
PROVIDERS: PCP Family Medicine; Visit Provider Family Medicine
DX: I10 Essential (primary) hypertension (principal); E11.8 Type 2 diabetes mellitus with unspecified complications; K21.9 Gastro-esophageal reflux disease without esophagitis
CPT/HCPCS: 36415; 82088; 82533; 82607; 82728; 84244; 84443

== ENCOUNTER → 2024-11-24 | Outpatient (CLI) | payer MEDICARE, SELFPAY ==
[2024-11-24 18:22] LABS: Free T3 2.4 pg/mL (2.18-3.98); Vitamin B12 540 pg/mL (180-914)
[2024-11-28 17:08] LABS: Thyroglobulin Antibody < 1.0 IU/mL (0.0-0.9); Thyroid Peroxidase AB < 9 IU/mL (0-34); Thyroid Stim Immunoglob <0.10 IU/L (0.00-0.55)
== END | disposition home or self-care (01) ==
LOC: MTLAB 15:30
PROVIDERS: PCP Family Medicine; Referring Provider Family Medicine; Visit Provider Family Medicine
DX: E53.8 Deficiency of other specified B group vitamins (principal); R94.6 Abnormal results of thyroid function studies
CPT/HCPCS: 36415; 82607; 84439; 84443; 84445; 84481; 86376; 86800

== ENCOUNTER → 2024-11-27 | Outpatient (CLI) | payer MEDICARE, SELFPAY ==
[2024-11-27 11:44] LABS: 24 HR UR TOTAL VOLUME 5050 ML
[2024-11-27 11:59] LABS: Urine Microalbumin (24 Hour) 161.6 mg/24 HR (0.0-30.0)
== END | disposition home or self-care (01) ==
LOC: LABSPEC 09:22
PROVIDERS: PCP Family Medicine; Visit Provider Family Medicine
DX: I10 Essential (primary) hypertension (principal); E11.8 Type 2 diabetes mellitus with unspecified complications; K21.9 Gastro-esophageal reflux disease without esophagitis
CPT/HCPCS: 81050; 82043; 83835

== ENCOUNTER → 2024-12-08 | Outpatient (CLI) | payer MEDICARE, SELFPAY ==
--- NOTE | 2024-12-08 08:52 | RDU_ITS ---
Reason For Study Reason For Study: HTN Right Renal Artery Left Renal Artery Right renal artery ostium 105.2/23 Left renal artery ostium 86.9/15.7 RSV/EDV. PSV/EDV. Right renal artery proximal 114.3/19.4 Left renal artery proximal PSV/EDV PSV/EDV. 112.5/19.4 . Right renal artery mid 116.2/24.8 Left renal artery mid 121.6/19.4 PSV/EDV. PSV/EDV . Right renal artery distal 107/21.2 Left renal artery distal 120.5/23.9 PSV/EDV. PSV/EDV. Right RAR 1.52. Left RAR 1.61. Right Renal Parenchyma Left Renal Parenchyma Upper Pole Medula 31.7/5.8 PSV/EDV. Left upper pole medulla 36.2/8.7 Right upper pole medulla EDR 0.2 . PSV/EDV . Right upper pole medulla R.I. 0.82 . Left upper pole medulla EDR 0.2 . Upper Spencer Cortx 20.1/5.3 PSV/EDV. Left upper pole medulla R.I. 0.76 . Right upper pole cortex EDR 0.3 . UP Cortex 15.3/6 PSV/EDV. Right upper pole cortex R.I. 0.74 . Left upper pole cortex EDR 0.4 . Right lower Pole medulla 25.1/5.3 Left upper pole cortex R.I. 0.61 . PSV/EDV . Left lower Pole medulla 31.3/6.5 Right lower pole medulla EDR 0.2 . PSV/EDV . Right lower pole medulla R.I. 0.79 . Left lower pole medulla EDR 0.2 . Lower Pole Cortex 20.7/5.8 PSV/EDV. Left lower pole medulla R.I. 0.79 . Right lower pole cortex EDR 0.3 . Lower Pole Cortx 14.2/3.8 PSV/EDV. Right lower pole cortex R.I. 0.72 . Left lower pole cortex EDR 0.73 . Right Renal Hilar Left lower pole cortex R.I. 0.3 . Right Hilar avg 82/11.7 PSV/EDV. Left Renal Hilar Right hilar acceleration time 60 m/sec. LT Hilar avg 77.3/15.8 PSV/EDV . Right Renal Dimensions Left hilar acceleration time 30 m/sec. Right kidney size 13.84 cm . Left Renal Dimensions Right cortical dimension 1.73 cm . Left kidney size 13.49 cm . Left cortical dimension 2.02 cm . Aorta Proximal abdominal aorta 2.33 x 2.33 cm . Proximal abdominal aorta peak systolic velocity is 75.4 cm/sec . Distal abdominal aorta 1.89 x 1.89 cm . Distal abdominal aorta peak systolic velocity is 112.5 cm/sec . VL/Renal Artery Duplex Ultrasound Interpretation Summary Renal artery velocities are bilaterally normal. Renal-aortic ratios are also bi laterally normal. Acceleration times are normal bilaterally. There is no evidence of hemodynamically significant renal a rtery stenosis on either side. Renovascular resistance appears to be bilaterally elevated . The right cortical dimension is increased. The left cortical dimension is increased. Kidneys appear normal in size bilaterally. Ordering Physician: Rubi Quijano Referring Physician: Rubi Quijano Performed By: Alisha Menard RVT
== END | disposition home or self-care (01) ==
LOC: CVS 08:50
PROVIDERS: PCP Family Medicine; Referring Provider Family Medicine; Visit Provider Family Medicine
DX: I10 Essential (primary) hypertension (principal)
CPT/HCPCS: 93975

== ENCOUNTER → 2025-03-28 | Outpatient (CLI) | payer MEDICARE, SELFPAY ==
[2025-03-28 14:34] LABS: Hematocrit 32.4 % (40-54); Hemoglobin 11.1 g/dL (13.0-16.5); Mean Corp Hgb Conc 34.3 g/dL (32-36); Mean Corpuscular Volume 88.5 fL (80-94); Mean Platelet Vol. 9.1 fl (6.2-12.0); Platelet Count 246 K/mm3 (150-450); RBC Distribution Width CV 13.3 % (11.6-14.6); RBC Distribution Width SD 43.4 fl (35.1-43.9); Red Blood Count 3.66 M/mm3 (4.6-6.2); White Blood Count 5.8 K/mm3 (4.4-11.0)
[2025-03-28 15:03] LABS: AST(SGOT) 24 U/L (<=37); Alanine Aminotransfer ALT/SGPT 9 U/L (<=46); Albumin, Serum 4.1 g/dL (3.4-4.8); Alkaline Phosphatase 25 U/L (40-129); Ammonia 36.9 umol/L (16-60); Anion Gap 11 (5-15); BUN 18 mg/dL (4-19); BUN/Creat Ratio 15.3 RATIO (10-20); Calcium,Total 9.2 mg/dL (7.6-11.0); Carbon Dioxide 24.4 mmol/L (21.0-32.0); Chloride 97 mmol/L (98-108); Globulin 2.4 g/dL (2.2-4.2); Glucose 107 mg/dL (70-99); Potassium 4.4 mmol/L (3.3-5.1); Valproic Acid (Depakene) Level 44 ug/mL (50-100)
[2025-03-29 15:18] LABS: Iron 74 ug/dL (65-175); Iron Binding Capacity,Total 357 ug/dL (250-450); Iron Binding Capacity,Unsat 283 ug/dL (228-428); Vitamin B12 345 pg/mL (180-914)
== END | disposition home or self-care (01) ==
PROVIDERS: PCP Family Medicine; Referring Provider Counselor Mental Health; Visit Provider Counselor Mental Health
DX: F25.0 Schizoaffective disorder, bipolar type (principal); D64.9 Anemia, unspecified
CPT/HCPCS: 36415; 80053; 80164; 82140; 82607; 83540; 83550; 85027

== ENCOUNTER → 2025-03-30 | Outpatient (CLI) | payer MEDICARE, SELFPAY | END | disposition home or self-care (01) | LOC: LAB 13:19 → LABSPEC 13:27 | PROVIDERS: PCP Family Medicine; Referring Provider Nurse Practitioner Family; Visit Provider Nurse Practitioner Family | DX: D64.9 Anemia, unspecified (principal) | CPT/HCPCS: 82274 ==

== ENCOUNTER → 2025-06-11 | Outpatient (CLI) | payer MEDICARE, SELFPAY ==
[2025-06-11 12:52] LABS: Albumin, Serum 4.0 g/dL (3.4-4.8); Anion Gap 12 (5-15); BUN 14 mg/dL (4-19); BUN/Creat Ratio 12.7 RATIO (10-20); Calcium,Total 8.8 mg/dL (7.6-11.0); Carbon Dioxide 22.9 mmol/L (21.0-32.0); Chloride 95 mmol/L (98-108); Glucose 91 mg/dL (70-99); Potassium 3.9 mmol/L (3.3-5.1)
== END | disposition home or self-care (01) ==
LOC: LAB 10:25
PROVIDERS: PCP Family Medicine; Referring Provider Internal Medicine Nephrology; Visit Provider Internal Medicine Nephrology
DX: I1A.0 Resistant hypertension (principal)
CPT/HCPCS: 36415; 80069

== ENCOUNTER → 2025-06-20 | Outpatient (CLI) | payer MEDICARE, SELFPAY ==
[2025-06-20 14:09] LABS: Mucous, Urine 0 SEEN /hpf (<or=2+)
[2025-06-20 17:10] LABS: Hematocrit 34.1 % (40-54); Hemoglobin 11.7 g/dL (13.0-16.5); Immature Granulocytes Count 0.030 X10^3/uL (0.0-0.0); Mean Corp Hgb Conc 34.3 g/dL (32-36); Mean Corpuscular Volume 91.4 fL (80-94); Mean Platelet Vol. 9.6 fl (6.2-12.0); NRBC Flagged by Analyzer 0 % (0-5); Platelet Count 254 K/mm3 (150-450); RBC Distribution Width CV 13.2 % (11.6-14.6); RBC Distribution Width SD 44.4 fl (35.1-43.9); Red Blood Count 3.73 M/mm3 (4.6-6.2); White Blood Count 8.2 K/mm3 (4.4-11.0)
[2025-06-20 17:42] LABS: FOLATES,SERUM (FOLIC ACID) 14.30 ng/mL (4.60-34.80)
[2025-06-20 17:46] LABS: AST(SGOT) 24 U/L (<=37); Alanine Aminotransfer ALT/SGPT 16 U/L (<=46); Albumin, Serum 4.2 g/dL (3.4-4.8); Alkaline Phosphatase 30 U/L (40-129); Anion Gap 12 (5-15); BUN 16 mg/dL (4-19); BUN/Creat Ratio 15.4 RATIO (10-20); Calcium,Total 9.3 mg/dL (7.6-11.0); Carbon Dioxide 22.9 mmol/L (21.0-32.0); Chloride 95 mmol/L (98-108); Globulin 2.7 g/dL (2.2-4.2); Glucose 136 mg/dL (70-99); Potassium 4.3 mmol/L (3.3-5.1); Vitamin B12 335 pg/mL (180-914); Vitamin D,25 Hydroxy 22.4 ng/mL (30-100)
[2025-06-20 20:20] LABS: Color, Urine Yellow (Yellow); Glucose, Dipstick Normal (Normal); Ketone-Dipstick Negative (Negative); Leukocyte Esterase-Dipstick Negative /ul (Negative); Nitrite-Dipstick Negative (Negative); Occult Blood-Urine Negative /ul (Negative); Protein-Dipstick 15 mg/dl (Negative); Specific Gravity, Urine 1.015 (1.002-1.030); Urine Bilirubin Dipstick Negative (Negative)
[2025-06-20 21:39] LABS: Red Blood Cells-Urine 0-5 SEEN /hpf (0-5); Squamous Epithelial Cells - UA 0-5 SEEN /hpf (0-5)
== END | disposition home or self-care (01) ==
LOC: VSLAB 13:51
PROVIDERS: PCP Family Medicine; Referring Provider Nurse Practitioner Family; Visit Provider Nurse Practitioner Family
DX: R25.1 Tremor, unspecified (principal); R35.0 Frequency of micturition
CPT/HCPCS: 36415; 80053; 81001; 82306; 82607; 82746; 84439; 84443; 85025; 87086

== ENCOUNTER → 2025-06-20 | Outpatient (CLI) | payer MEDICARE, SELFPAY | END | disposition home or self-care (01) | LOC: VSLAB 14:07 → LABSPEC 14:10 | PROVIDERS: PCP Family Medicine; Referring Provider Nurse Practitioner Family; Visit Provider Nurse Practitioner Family | DX: R35.0 Frequency of micturition (principal) | CPT/HCPCS: 36415; 81001; 87086 ==